=== PATIENT | female | born 1930 | race Caucasian/White ===

== ENCOUNTER 2016-08-03 18:02 | Inpatient (IN) ==
--- NOTE | 2016-08-03 19:41 | Internal Med History&Physical ---
<Xavi Ricketts - Last Filed: 08/03/16 22:12> Date of Encounter: 08/03/16 Time of Encounter: 19:41 Assessment and Plan (1) Sepsis due to urinary tract infection Current visit: Yes Status: Acute -in 2006, spesis (unknown source), patient was intubated. -Diagnosed by UA. Sent for culture. Awaiting results -Pt given 2gm rocephin at [place], 1.5L fluid bolus -1 BC at [facility] -Patient stable and not in any distress Plan -Continue fluids at 25mls/hr -Rocephin 1gm q12 h -Get another Blood culture, lactate -Redraw labs in morning (2) Anxiety Current visit: No Status: Acute -Chronic -Ativan 0.5 TID. (3) Chronic obstructive pulmonary disease, unspecified Current visit: No Status: Acute -Previous smoker -No cough, sputum production, SOB -home O2 at 2.5L NC PLan -Continue home o2 -Continue home medication (symbicort? Awaiting clarification) Qualifiers: COPD type: COPD with acute exacerbation Qualified Code(s): J44.1 - Chronic obstructive pulmonary disease with (acute) exacerbation (4) DVT prophylaxis Current visit: No Status: Acute -Previous history of DVT. -lovenox sq (5) Pelvic fracture Current visit: Yes Status: Acute -R sided. 2 Weeks ago. -Conservative management. Patient able to pivot to bedside commode. Plan -Renal function WNL -Percocet 5mg q6h for pain. Taken previously. Qualifiers: Encounter type: sequela Pelvic bone location: unspecified part of pelvis Fracture type: closed Fracture alignment: nondisplaced Qualified Code(s): S32.9XXS - Fracture of unspecified parts of lumbosacral spine and pelvis, sequela Internal Medicine - H&P: HPI Chief complaint: Nausea and hip pain Admitted From: Emergency Dept Plans for Post Hospital Care: Home History of present illness: Ms. Mcdaniels is a 86 year old female admitted for possible urosepsis with concurrent R pelvic fracture 2 weeks ago. 2 weeks ago on Wednesday patient had an unprovoked fall, slipped on some water, landed on her right side. X-ray revealed a right pelvic fracture. Knee X-ray showed no abnormalities. No surgery. Conservative medical management. 8 days later, patient had subjective fever. This morning, patient had temperature of 99.5 and was feeling nauseated, non productive cough and hurting, mostly over R pelvic bone. Family brought her to ER and found to have a WBC of 22 and UTI. CXR showed emphysema. No pneumonia/ effusion. She was given Rocephin (patient denied allergy to Rocephin) and sent to [facility]. She is currently resting comfortably in bed with her daughter at bedside. Admits to R pelvic pain and superpubic tenderness, dysuria. Denies hematuria or dark urine. No longer feeling nauseated. Denies Vomiting, confusion , [place]KE, blurry vision, CP, SOB, Flankpain. She was admitted in 2006 for sepsis ( cant remember the source) and placed on a ventilator. Past Med Surg Social Fam HX - Past Medical History Medical history: COPD, GERD, hyperlipidemia, hypertension, osteoporosis, thyroid disease, other Psychiatric history: anxiety - Past Surgical History Surgical History: appendectomy, cholecystectomy, orthopedic, other, other - Social History Smoking Status: Former smoker Smokeless Tobacco Status: No Alcohol use: none Drug use: none - Family History Father Living Status: Hx Family Cancer: Yes (prostate) Mother Living Status: Hx Family Cardiac Disorders: Yes (CHF) Hx Family Cancer: Yes (colon cancer) Sister Living Status: Hx Family Cancer: Yes (breast) Internal Medicine - H&P: Meds Aspirin 81 mg PO DAILY 07/24/16 [History] Dextrose/Vitamin D3 [Trueplus Glucose 4 gm Tab Chew] 1 each PO DAILY 07/24/16 [ History] Famotidine [Heartburn Prevention] 20 mg PO DAILY 07/24/16 [History] Levothyroxine [Synthroid] 50 mcg PO 0630 07/24/16 [History] Lisinopril [Zestril] 5 mg PO DAILY 07/24/16 [History] Loratadine [Claritin] 10 mg PO DAILY 07/24/16 [History] Simvastatin [Zocor] 40 mg PO HS 07/24/16 [History] HYDROcodone/Acet 5/325 mg [Hernandez 5-325 mg] 1 tab PO Q6H PRN #12 tab 07/27/16 [Rx ] Ondansetron ODT [Zofran ODT] 4 mg SL Q6HR #12 tab.rapdis 07/27/16 [Rx] Allergies Penicillins Allergy (Verified 07/27/16 12:21) Hives Sulfa (Sulfonamide Antibiotics) Allergy (Verified 07/27/16 12:21) Hives All Systems PM: A 10-system review of systems was performed and is negative for pertinent findings except as documented above in the HPI. - EENT Eyes: no change in vision, no discharge, no pain, no photophobia - Cardiovascular Cardiovascular ROS IM: no chest pain, no diaphoresis, no dyspnea, no lightheadedness, no palpitations, no syncope - Respiratory Respiratory: no cough, no dyspnea, no wheezing, no excessive phlegm production - Constitutional General appearance: Present: A&O X 3, no acute distress, answers questions appropriately - Head Head exam: Present: atraumatic, normal inspection - Respiratory Respiratory exam: Present: decreased breath sounds - Cardiovascular Cardiovascular exam: Present: RRR - GI/Abdominal GI/Abdominal exam: Present: normal bowel sounds, soft, tenderness (superpubic ) , no peritoneal signs - Expanded Lower Extremities Exam Hip exam: Absent: swelling - Neurological Exam Neurological exam: Present: CN II-XII intact, oriented X3, no focal deficits. Absent: pronater drift, facial droop, speech deficit - Other Additional findings: No tender with palpation over the right greater trochanter. Moderate tenderness to palpation. Symphysis. Right side medial thigh ecchymosis. No tenderness over the right knee. Mild to moderate pitting edema bilaterally. Feet are normal color and pulse bilaterally. <Paul Temple - Last Filed: 08/04/16 03:39> Date of Encounter: 08/03/16 Internal Medicine - H&P: HPI Admitted From: Emergency Dept Plans for Post Hospital Care: Home History of present illness: Ms. Mcdaniels is a 86 year old female with history significant diffuse OA, osteoporosis/vit D def, chr dorsalgia/h/o vertebral comp fxs, HTN, HLD, anemia chronic disease,RLS, h/oVTE/DVT, multiple falls,CAD/AMIs, gen anxiety, hypothyroidism, COPD/chr hypoxic resp failure, GERD, FTT/anorexia, former smoker,etc.. Admitted to [facility] as a transfer from [facility] where she presented that the request of her primary care physician for persisting posttraumatic pelvic pain affecting patient's ability to remain independent in completing daily activities in the home setting. Radiographs performed on July 27 demonstrated that the patient had suffered a nonsurgical, acute minimally displaced, fracture of the right superior and inferior pubic rami. Also delineated was evidence of diffuse demineralization and degenerative changes of the lumbar spine. Compression deformities were noted at L1, L3 and T11. These were felt to be chronic, age- indeterminate compression fractures. However since her injury the patient has not shown measurable improvement in her mobility and independence in her activities of daily living. She reports diffuse musculoskeletal pain including right lateral chest wall pelvis and bilateral hips right leg lower back and suprapubic area of abdomen etc. Her daughter presentation did note that the patient had a low-grade fever of 99.8 with a non- productive cough. Patient reports compliance with her home medications including breathing treatments but this cannot be elevated at this time. Findings of the EGD noted a temperature of 99.8 pulse 105-115 respirations 18. 90-96/52-58, saturation 95-96% room air. CBC 23.4 hemoglobin 10.6. MCV 103 MCH 33.7. Platelets 208,000. Differential showed an increase in neutrophils and monocytes. Comprehensive metabolic panel was normal except a glucose of 156 osmolality 302. BUN was 26 with creatinine 0.87. Albumin 3.1 with total of 6. Lipase was 11. PT 14.3 INR 1.3 PTT 30.7. Lactic acid 1. Phosphorus 2.5 magnesium 2.1. Urinalysis showed large protein and specific gravity was greater than 1.03. Large ketones. Moderate bilirubin. Urobilinogen was 2.0. Trace leukocyte esterase. EKG noticed sinus tachycardia. Rate 104. Left axis deviation. No acute ischemic changes. Preliminary impression suggest serious/sepsis criteria present at admission. Source suggested to be UTI. Further investigation is warranted given patient's significant history of COPD and recent traumatic injuries and limitations. Therapies will be initiated empirically to address sepsis secondary to urinary source. But appropriate pulmonary toilet measures and pain management will also be introduced and progress as appropriate. The patient given her presenting concerns her advanced age and frailty clinical findings and comorbidities inside that she is at risk for further acute clinical decline and morbidity in this setting. Workup and treatments will progress comprehensively. The patient was visited and interviewed and examined. I examined this patient and my medical decision-making was reviewed with the Resident Physician, Dr. Xavi Ricketts. For this encounter, I have reviewed the documentation, treatment plan, and medical decision making. Cumulative laboratory and radiographic database has been reviewed, considered and discussed. I agree with the documented findings, disposition and treatment plan as described except to the extent set forth below. Plan of care has been discussed in detail with patient. Questions addressed. Consultative opinions will be sought as clinical circumstances justify. Given the patient's presenting concerns, past medical history, clinical findings and symptoms, she is admitted at this time to undergo further evaluation and disposition. Orders were written as per the computerized physician order management specialist system. Condition is serious. Prognosis is guarded. CODE STATUS is reported as full Past Med Surg Social Fam HX - Past Medical History Source: old records reviewed Medical history: arthritis, COPD, coronary artery disease, DVT, GERD, hyperlipidemia, hypertension, myocardial infarction, osteoporosis (Vit D def.), thyroid disease, other (RLS. ) Psychiatric history: anxiety, other - Past Surgical History Surgical History: appendectomy, cholecystectomy, orthopedic, other, other - Social History Smoking Status: Former smoker Alcohol use: none Drug use: none Occupational status: retired Current living situation: Home, With Family Activity Level: Independent ambulation, Mostly sedentary Recent Out of Country Travel Within the Last 8 Weeks: No Exposure or Possible Exposure to Illness During Travel: No All Systems PM: A 10-system review of systems was performed and is negative for pertinent findings except as documented above in the HPI. - Constitutional Constitutional: as per HPI - EENT Eyes: as per HPI Ears: as per HPI Nose, mouth and throat: as per HPI - Breasts Breasts: as per HPI - Cardiovascular Cardiovascular ROS IM: as per HPI - Respiratory Respiratory: as per HPI - Gastrointestinal Gastrointestinal: as per HPI - Genitourinary Genitourinary: as per HPI Menstruation: as per HPI - Musculoskeletal Musculoskeletal ROS IM: as per HPI - Integumentary Integumentary IM: as per HPI - Neurological Neurological ROS: as per HPI - Psychiatric Psychiatric: as per HPI - Endocrine Endocrine IM: as per HPI - Hematologic/Lymphatic Hematologic/Lymphatic: as per HPI - Allergic/Immunologic Allergic/Immunologic: as per HPI - Constitutional Vitals: Temp Pulse Resp BP Pulse Ox 97.8 F 73 16 98/59 98 08/04/16 00:22 08/04/16 00:22 08/04/16 00:22 08/04/16 00:22 08/04/16 00:22 General appearance: Present: cachectic, cooperative, mild distress, A&O X 3, pleasant, underweight, answers questions appropriately - Attending Attestation My signature below is to certify that this patient is under my care and that I, or the Resident Physician working with me, has had a [id number] encounter with this patient.
[2016-08-03] MEDS ORDERED: 0.9 % Sodium Chloride 1,000 ML IVC SCH (22:00)
[2016-08-03] MEDS ORDERED: *HR* Enoxaparin 30 MG/0.3 ML SYRINGE SQ ONE (22:10)
[2016-08-03] MEDS ORDERED: *HR* OxyCODONE/APAP 5/325 TABLET PO PRN (22:11)
[2016-08-03] MEDS ORDERED: *HR* Morphine 2 MG/ML SYRINGE IVP PRN (23:53)
[2016-08-03] MEDS ORDERED: Ondansetron 4 MG/2 ML VIAL IVP PRN (23:53)
[2016-08-03] MEDS ORDERED: Naloxone 0.4 MG/ML INJ IVP PRN (23:53)
[2016-08-03] MEDS ORDERED: Acetaminophen 325 MG TABLET PO PRN (23:53)
[2016-08-03] MEDS ORDERED: Nicotine 21 MG PATCH.TD24 TD PRN (23:53)
[2016-08-03] MEDS ORDERED: Pantoprazole 40 MG VIAL IVP STA (23:53)
[2016-08-03] MEDS ORDERED: *HR* OxyCODONE Immed Rel 5 MG TABLET PO PRN (23:53)
[2016-08-04] MEDS: *HR* LORazepam 0.5 MG TABLET PO PRN ×3 (00:02→20:13)
[2016-08-04] MEDS ORDERED: 0.9 % Sodium Chloride 500 ML IVC ONE (03:41)
[2016-08-04] MEDS ORDERED: Benzonatate 100 MG CAPSULE PO PRN (03:47)
[2016-08-04 04:23] LABS: Basophils % 0.2 %; Eosinophils # 0.1 K/mcL (0.0-0.6); Eosinophils % 0.5 %; Hematocrit 27.3 % (35.3-44.9); Hemoglobin 8.9 g/dL (11.5-15.4); Immature Granulocytes % 0.5 % (0-4); Lymphocytes # 1.1 K/mcL (0.6-4.6); Lymphocytes % 9.4 %; Mean Corpuscular HGB Conc 32.6 g/dL (31.6-35.5); Mean Corpuscular Hemoglobin 34.2 pg (28.0-33.3); Mean Platelet Volume 11.5 fL (9.4-12.4); Monocytes # 2.2 K/mcL (0.0-1.3); Monocytes % 19.1 %; Neutrophils # 8.1 K/mcL (1.6-8.9); Platelet Count 166 K/mcL (140-400); Red Cell Distribution Width 13.2 % (11.5-14.5); Segmented Neutrophils % 70.3 %
[2016-08-04] MEDS: 0.9 % Sodium Chloride 1,000 ML IVC SCH ×2 (04:25→11:20)
[2016-08-04 04:27] LABS: INR 1.3; Prothrombin Time 14.2 Seconds (9.4-12.1)
[2016-08-04] MEDS: Ipratropium/Albuterol Neb 3 ML IH SCH ×4 (04:36→22:19)
[2016-08-04 04:37] LABS: % Iron Saturation 13 % (15-50); Chol/HDL Ratio 2.1 (0-4.9); Iron 23 mcg/dL (50-170); Transferrin 125 mg/dL (180-382)
[2016-08-04 04:38] LABS: Alanine Aminotransferase 19 Units/L (0-55); Albumin 2.5 g/dL (3.5-5.0); Alkaline Phosphatase 62 Units/L (38-126); Aspartate Amino Transferase 23 Units/L (5-34); BUN/Creatinine Ratio 31 (6-26); Bilirubin,Total 0.4 mg/dL (0.2-1.2); Blood Urea Nitrogen 22 mg/dL (7-20); Calcium 8.4 mg/dL (8.6-10.8); Carbon Dioxide 29 mEq/L (19-29); Chloride 106 mEq/L (98-109); Globulin 2.4 g/dL (2.4-3.5); Glucose 103 mg/dL (70-99); Osmolality,Calculated 294 (280-300); Potassium 3.8 mEq/L (3.5-4.5); Sodium 140 mEq/L (136-145); Total Protein 4.9 g/dL (6.0-8.3); eGFR For African Americans > 60 (> 60); eGFR For Non-African Americans > 60 (> 60)
[2016-08-04 05:06] LABS: Large Platelets Present (Not Present); Platelet Clumps Few (Not Present); Reactive Lymphocytes Present (Not Present)
[2016-08-04 05:12] LABS: Folate 14.5 ng/mL (7.0-31.4)
[2016-08-04] MEDS ORDERED: *HR* Enoxaparin 30 MG/0.3 ML SYRINGE SQ SCH (06:00)
[2016-08-04 06:08] LABS: Bilirubin,Urine Small (Negative); Blood,Urine Negative (Negative); Clarity,Urine Clear (Clear); Color,Urine Dark Yellow (Yellow); Glucose,Urine (UA) Normal (Normal); Ketones,Urine Negative (Negative); Leukocyte Esterase,Urine Negative (Negative); Nitrite,Urine Negative (Negative); PH,Urine 5.5 pH Units (5.0-8.0); Protein,Urine 30 mg/dL (Neg-Trace); Specific Gravity,Urine > 1.030 (1.010-1.025); Urobilinogen,Urine Normal (Normal)
[2016-08-04 06:09] LABS: Bacteria,Urine None Seen per hpf (None-Few); Hyaline Casts,Urine None Seen per lpf (None-Few); Squamous Epithelial Cell,Urine Many per lpf (None-Few); WBC,Urine 0-3 per hpf (0-3)
[2016-08-04] MEDS: Loratadine 10 MG TABLET PO SCH (08:38)
[2016-08-04] MEDS: Aspirin 81 MG TAB.CHEW PO SCH (08:38)
[2016-08-04] MEDS ORDERED: TRUEPLUS GLUCOSE PO SCH (09:00)
[2016-08-04] MEDS ORDERED: traMADol 50 MG TABLET PO SCH (09:00)
[2016-08-04] MEDS ORDERED: Famotidine 20 MG TABLET PO SCH ×2 (09:00)
[2016-08-04] MEDS ORDERED: *HR* HYDROcodone/Acet 5/325 mg TABLET PO PRN (14:03)
--- NOTE | 2016-08-04 18:13 | Internal Med Progress Note ---
Date of Encounter: 08/04/16 Time of Encounter: 14:00 - Assessment and plan (1) Sepsis due to urinary tract infection Current Visit: Yes Status: Acute Assessment and plan: Patient presented with altered mental status, leukocytosis and noted to have a source of infection. Continue IV antibiotics and follow up urine culture. (2) Acute encephalopathy Current Visit: Yes Status: Resolved Assessment and plan: Likely related to underlying infection. Currently at baseline mental status. (3) Chronic obstructive pulmonary disease, unspecified Current Visit: Yes Status: Chronic Assessment and plan: Not noted to be in acute exacerbation. Continue when necessary bronchodilators and supplemental oxygen. Qualifiers: COPD type: unspecified COPD Qualified Code(s): J44.9 - Chronic obstructive pulmonary disease, unspecified (4) Anxiety Current Visit: Yes Status: Chronic (5) Physical deconditioning Current Visit: Yes Status: Chronic Assessment and plan: Physical and occupational therapy evaluation. Fall precautions. (6) Urinary tract infection Current Visit: Yes Status: Acute Assessment and plan: Urinalysis is suggestive of UTI. Continue IV antibiotics and follow up urine cultures. Qualifiers: Urinary tract infection type: site unspecified Hematuria presence: without hematuria Qualified Code(s): N39.0 - Urinary tract infection, site not specified - Subjective Interval history: Reports generalized weakness. No nausea, vomiting, abdominal pain. Reports living alone and having no help at home, interested in rehabilitation placement. - Constitutional Vitals: Temp Pulse Resp BP Pulse Ox 97.9 F 92 18 123/67 95 08/04/16 16:42 08/04/16 16:42 08/04/16 16:42 08/04/16 16:42 08/04/16 16:42 General appearance: Present: cachectic, A&O X 3, answers questions appropriately - Respiratory Respiratory exam: Present: CTAB. Absent: accessory muscle use, rales, rhonchi, wheezes - Cardiovascular Cardiovascular exam: Present: RRR, +S1, +S2. Absent: diastolic murmur, gallop, rubs, systolic murmur - GI/Abdominal GI/Abdominal exam: Present: normal bowel sounds, soft, no peritoneal signs. Absent: distended, tenderness Internal Medicine: Result - Labs CBC & Chem 7: 08/04/16 04:11 08/04/16 04:11 Labs: Short CBC 08/04/16 Range/Units 04:11 WBC 11.5 H D (4.3-11.1) K/mcL Hgb 8.9 L D (11.5-15.4) g/dL Hct 27.3 L (35.3-44.9) % Plt Count 166 (140-400) K/mcL Neutrophils # 8.1 (1.6-8.9) K/mcL BMP 08/04/16 04:11 Sodium 140 Potassium 3.8 Chloride 106 Carbon Dioxide 29 BUN 22 H Creatinine 0.72 Glucose 103 H Calcium 8.4 L Cardiac Enzymes 08/04/16 Range/Units 04:11 Troponin I 0.01 (0-0.03) ng/mL Liver Function 08/04/16 Range/Units 04:11 Total Bilirubin 0.4 (0.2-1.2) mg/dL AST 23 (5-34) Units/L ALT 19 (0-55) Units/L Alkaline Phosphatase 62 (38-126) Units/L Albumin 2.5 L (3.5-5.0) g/dL Urine 08/04/16 Range/Units 05:43 Urine Color Dark Yellow (Yellow) Urine Clarity Clear (Clear) Urine pH 5.5 (5.0-8.0) pH Units Ur Specific [place] > 1.030 H (1.010-1.025) Urine Protein 30 H (Neg-Trace) mg/dL Urine Glucose (UA) Normal (Normal) mg/dL - ABG Interpretation ABG results: PT/INR, D-dimer PT 14.2 Seconds (9.4-12.1) H 08/04/16 04:11 - VTE Documentation of Mechanical Device: Graduated compression elastic hosiery Consult Discharge Plan - Plan Referrals: Nuzhat Wood MD [Primary Care Provider] -
[2016-08-05] MEDS: *HR* HYDROcodone/Acet 10/325 mg TABLET PO PRN ×2 (00:47→13:27)
[2016-08-05] MEDS: 0.9 % Sodium Chloride 1,000 ML IVC SCH (01:47)
[2016-08-05] MEDS: Ipratropium/Albuterol Neb 3 ML IH SCH ×6 (04:35→23:25)
[2016-08-05] MEDS: *HR* Enoxaparin 40 MG/0.4 ML SYRINGE SQ SCH (05:34)
[2016-08-05 06:33] LABS: Basophils # 0.1 K/mcL (0.0-0.2); Basophils % 0.7 %; Eosinophils # 0.2 K/mcL (0.0-0.6); Eosinophils % 2.3 %; Hematocrit 30.3 % (35.3-44.9); Hemoglobin 9.8 g/dL (11.5-15.4); Immature Granulocytes % 0.4 % (0-4); Lymphocytes # 1.2 K/mcL (0.6-4.6); Lymphocytes % 17.2 %; Mean Corpuscular HGB Conc 32.3 g/dL (31.6-35.5); Mean Corpuscular Hemoglobin 33.6 pg (28.0-33.3); Mean Corpuscular Volume 103.8 fL (83.0-100.0); Mean Platelet Volume 11.4 fL (9.4-12.4); Monocytes # 0.9 K/mcL (0.0-1.3); Monocytes % 12.9 %; Neutrophils # 4.7 K/mcL (1.6-8.9); Platelet Count 197 K/mcL (140-400); Red Blood Count 2.92 M/mcL (3.82-4.97); Red Cell Distribution Width 12.8 % (11.5-14.5); Segmented Neutrophils % 66.5 %
[2016-08-05 06:48] LABS: BUN/Creatinine Ratio 26 (6-26); Blood Urea Nitrogen 17 mg/dL (7-20); Calcium 9.1 mg/dL (8.6-10.8); Carbon Dioxide 28 mEq/L (19-29); Chloride 105 mEq/L (98-109); Glucose 120 mg/dL (70-99); Osmolality,Calculated 289 (280-300); Potassium 3.6 mEq/L (3.5-4.5); Sodium 138 mEq/L (136-145); eGFR For African Americans > 60 (> 60); eGFR For Non-African Americans > 60 (> 60)
[2016-08-05 07:16] LABS: Platelet Estimate Normal (Normal)
[2016-08-05] MEDS: Loratadine 10 MG TABLET PO SCH (08:21)
[2016-08-05] MEDS: Aspirin 81 MG TAB.CHEW PO SCH (08:21)
[2016-08-05] MEDS: Famotidine 20 MG TABLET PO SCH (08:21)
[2016-08-05] MEDS: Budesonide/Formoterol 160/4.5 MDI IH SCH ×2 (10:04→20:10)
--- NOTE | 2016-08-05 17:26 | Internal Med Progress Note ---
Date of Encounter: 08/05/16 Time of Encounter: 12:45 - Assessment and plan (1) Sepsis due to urinary tract infection Current Visit: Yes Status: Suspected Assessment and plan: Patient presented with altered mental status, leukocytosis and noted to have a source of infection. Currently improved, however urine culture shows no significant growth. Continue IV antibiotics to complete a short course. (2) Acute encephalopathy Current Visit: Yes Status: Resolved (3) Chronic obstructive pulmonary disease, unspecified Current Visit: Yes Status: Chronic Assessment and plan: Not noted to be in acute exacerbation. Continue when necessary bronchodilators and supplemental oxygen. Qualifiers: COPD type: unspecified COPD Qualified Code(s): J44.9 - Chronic obstructive pulmonary disease, unspecified (4) Anxiety Current Visit: Yes Status: Chronic (5) Physical deconditioning Current Visit: Yes Status: Chronic Assessment and plan: Physical and occupational therapy evaluation noted, recommend inpatient rehabilitation. vice president client services on board, anticipate discharge in a.m. Fall precautions. (6) Urinary tract infection Current Visit: Yes Status: Ruled-out Qualifiers: Urinary tract infection type: site unspecified Hematuria presence: without hematuria Qualified Code(s): N39.0 - Urinary tract infection, site not specified - Subjective Interval history: Reports pelvic pain and having a bad night due to noise from neighboring patient 's room. Tolerates oral diet. Requests rehabilitation placement. - Constitutional Vitals: Temp Pulse Resp BP Pulse Ox 98 F 90 19 164/89 96 08/05/16 13:58 08/05/16 13:58 08/05/16 13:58 08/05/16 13:58 08/05/16 13:58 General appearance: Present: cachectic, mild distress, A&O X 3, answers questions appropriately - Respiratory Respiratory exam: Present: CTAB. Absent: accessory muscle use, rales, rhonchi, wheezes - Cardiovascular Cardiovascular exam: Present: RRR, +S1, +S2. Absent: diastolic murmur, gallop, rubs, systolic murmur - GI/Abdominal GI/Abdominal exam: Present: normal bowel sounds, soft, no peritoneal signs. Absent: distended, tenderness Internal Medicine: Result - Labs CBC & Chem 7: 08/05/16 06:05 08/05/16 06:05 Labs: Short CBC 08/05/16 Range/Units 06:05 WBC 7.1 (4.3-11.1) K/mcL Hgb 9.8 L (11.5-15.4) g/dL Hct 30.3 L (35.3-44.9) % Plt Count 197 (140-400) K/mcL Neutrophils # 4.7 (1.6-8.9) K/mcL BMP 08/05/16 06:05 Sodium 138 Potassium 3.6 Chloride 105 Carbon Dioxide 28 BUN 17 Creatinine 0.66 Glucose 120 H Calcium 9.1 - ABG Interpretation ABG results: PT/INR, D-dimer PT 14.2 Seconds (9.4-12.1) H 08/04/16 04:11 - VTE Documentation of Mechanical Device: Graduated compression elastic hosiery Consult Discharge Plan - Plan Referrals: Nuzhat Wood MD [Primary Care Provider] -
[2016-08-05] MEDS: *HR* LORazepam 0.5 MG TABLET PO PRN ×2 (18:20→20:20)
[2016-08-06] MEDS: *HR* HYDROcodone/Acet 10/325 mg TABLET PO PRN (00:28)
[2016-08-06] MEDS: 0.9 % Sodium Chloride 1,000 ML IVC SCH (00:29)
[2016-08-06] MEDS: Ipratropium/Albuterol Neb 3 ML IH SCH ×6 (04:02→23:58)
[2016-08-06] MEDS: *HR* Enoxaparin 40 MG/0.4 ML SYRINGE SQ SCH (05:44)
[2016-08-06] MEDS: Budesonide/Formoterol 160/4.5 MDI IH SCH ×2 (08:41→19:39)
[2016-08-06] MEDS: Famotidine 20 MG TABLET PO SCH (09:12)
[2016-08-06] MEDS: Loratadine 10 MG TABLET PO SCH (09:12)
[2016-08-06] MEDS: Aspirin 81 MG TAB.CHEW PO SCH (09:12)
[2016-08-06] MEDS: *HR* LORazepam 0.5 MG TABLET PO PRN ×2 (09:22→20:22)
--- NOTE | 2016-08-06 17:47 | Internal Med Progress Note ---
Date of Encounter: 08/06/16 Time of Encounter: 12:30 - Assessment and plan (1) Sepsis due to urinary tract infection Current Visit: Yes Status: Suspected Assessment and plan: Patient presented with altered mental status, leukocytosis and noted to have a source of infection. Currently improved, however urine culture shows no significant growth. Continue IV antibiotics to complete a short course. (2) Acute encephalopathy Current Visit: Yes Status: Resolved Assessment and plan: Patient is noted to be delirious and hallucinating, according to nursing notes. Patient likely has sundowning and age related changes in cognitive function. Spoke at length with patient's daughter, who expressed concern about the patient 's mental status and reports that patient has been completely alert and oriented until this admission. Explained to the daughter that sundowning/ delirium is very common in hospitalized elderly patients, patient is not on any kind of sedatives except when necessary Ativan, which she has not been receiving and which is her home medication. Daughter verbalized understanding and is agreeable to discharge to [facility]. We will check TSH, serum vitamin B12 and folic acid. (3) Chronic obstructive pulmonary disease, unspecified Current Visit: Yes Status: Chronic Qualifiers: COPD type: unspecified COPD Qualified Code(s): J44.9 - Chronic obstructive pulmonary disease, unspecified (4) Anxiety Current Visit: Yes Status: Chronic (5) Physical deconditioning Current Visit: Yes Status: Chronic (6) Urinary tract infection Current Visit: Yes Status: Ruled-out Qualifiers: Urinary tract infection type: site unspecified Hematuria presence: without hematuria Qualified Code(s): N39.0 - Urinary tract infection, site not specified - Subjective Interval history: Noted to be sitting up in chair, having lunch. Reports no abdominal pain or any other complaints. Awaiting rehabilitation placement. - Constitutional Vitals: Temp Pulse Resp BP Pulse Ox 98.7 F 90 16 159/70 97 08/06/16 14:23 08/06/16 14:23 08/06/16 16:15 08/06/16 14:23 08/06/16 16:15 General appearance: Present: cachectic, A&O X 3, answers questions appropriately - Respiratory Respiratory exam: Present: CTAB. Absent: accessory muscle use, rales, rhonchi, wheezes - Cardiovascular Cardiovascular exam: Present: irregular rhythm, +S1, +S2. Absent: diastolic murmur, gallop, rubs, systolic murmur - GI/Abdominal GI/Abdominal exam: Present: normal bowel sounds, soft, no peritoneal signs. Absent: distended, tenderness Internal Medicine: Result - Labs CBC & Chem 7: 08/05/16 06:05 08/05/16 06:05 - ABG Interpretation ABG results: PT/INR, D-dimer PT 14.2 Seconds (9.4-12.1) H 08/04/16 04:11 - VTE Documentation of Mechanical Device: Graduated compression elastic hosiery Consult Discharge Plan - Plan Referrals: Nuzhat Wood MD [Primary Care Provider] -
--- NOTE | 2016-08-06 23:15 | Electrocardiograph Report ---
[facility] Test Date: 2016-08-06 Pat Name: Jess Mcdaniels Department: 115 Room: 3A23 Gender: F Inspector Of Dredging: PAYAL : 1930 Requested By: Sandra Reed Order Number: [id number] Reading MD: Uriel Thomas MD Measurements Intervals [place] Rate: 97 P: 62 IA: 116 QRS: -19 QRSD: 86 T: 57 QT: 351 QTc: 405 Interpretive Statements SINUS RHYTHM WITH SHORT IA INTERVAL WITH OCCASIONAL SUPRAVENTRICULAR PREMATURE COMPLEXES Electronically Signed On 08-06-2016 23:13:23 EDT by Uriel Thomas MD
[2016-08-07] MEDS: *HR* LORazepam 0.5 MG TABLET PO PRN (01:01)
[2016-08-07] MEDS: Ipratropium/Albuterol Neb 3 ML IH SCH ×5 (01:08→19:54)
[2016-08-07] MEDS: Albuterol 2.5 MG/3 ML NEBULIZER IH PRN (03:42)
[2016-08-07] MEDS: *HR* HYDROcodone/Acet 10/325 mg TABLET PO PRN (04:43)
[2016-08-07] MEDS: *HR* Enoxaparin 40 MG/0.4 ML SYRINGE SQ SCH (05:38)
[2016-08-07] MEDS: Aspirin 81 MG TAB.CHEW PO SCH (08:17)
[2016-08-07] MEDS: Famotidine 20 MG TABLET PO SCH (08:17)
[2016-08-07] MEDS: Loratadine 10 MG TABLET PO SCH (08:18)
[2016-08-07] MEDS: Budesonide/Formoterol 160/4.5 MDI IH SCH ×2 (10:43→19:54)
[2016-08-07 11:21] LABS: BUN/Creatinine Ratio 21 (6-26); Blood Urea Nitrogen 14 mg/dL (7-20); Calcium 9.7 mg/dL (8.6-10.8); Carbon Dioxide 29 mEq/L (19-29); Chloride 104 mEq/L (98-109); Glucose 111 mg/dL (70-99); Magnesium 1.8 mg/dL (1.6-2.6); Osmolality,Calculated 293 (280-300); Phosphorous 3.4 mg/dL (2.3-4.7); Potassium 3.6 mEq/L (3.5-4.5); Sodium 141 mEq/L (136-145); eGFR For African Americans > 60 (> 60); eGFR For Non-African Americans > 60 (> 60)
[2016-08-07 11:27] LABS: Basophils % 0.3 %; Eosinophils # 0.1 K/mcL (0.0-0.6); Eosinophils % 1.2 %; Hematocrit 31.6 % (35.3-44.9); Hemoglobin 10.5 g/dL (11.5-15.4); Immature Granulocytes % 0.6 % (0-4); Lymphocytes # 0.5 K/mcL (0.6-4.6); Lymphocytes % 3.8 %; Mean Corpuscular HGB Conc 33.2 g/dL (31.6-35.5); Mean Corpuscular Hemoglobin 33.5 pg (28.0-33.3); Mean Platelet Volume 11.4 fL (9.4-12.4); Monocytes # 2.4 K/mcL (0.0-1.3); Monocytes % 19.7 %; Neutrophils # 8.9 K/mcL (1.6-8.9); Red Blood Count 3.13 M/mcL (3.82-4.97); Red Cell Distribution Width 12.8 % (11.5-14.5); Segmented Neutrophils % 74.4 %
[2016-08-07 11:28] LABS: Platelet Count 300 K/mcL (140-400)
[2016-08-07] MEDS ORDERED: Ibuprofen 400 MG TABLET PO PRN (12:25)
[2016-08-07] MEDS ORDERED: traMADol 50 MG TABLET PO PRN (12:25)
--- NOTE | 2016-08-07 12:28 | Internal Med Progress Note ---
Date of Encounter: 08/07/16 Time of Encounter: 12:26 - Assessment and plan (1) Tachycardia Current Visit: Yes Status: Acute Assessment and plan: Patient is noted to have sinus tachycardia today with normal to high blood pressure. We will start telemetry monitoring. EKG shows sinus tachycardia with PVCs. We will start oral metoprolol and IV hydration and monitor urine output closely. (2) Sepsis due to urinary tract infection Current Visit: Yes Status: Suspected Assessment and plan: Patient has been on IV Rocephin since admission. Blood and urine cultures remain negative and no other source of infection identified. (3) Acute encephalopathy Current Visit: Yes Status: Acute Assessment and plan: Patient likely has delirium due to elderly age, prolonged hospitalization and sundowning. She is noted to have visual hallucinations although she seems oriented in general. No metabolic abnormality noted. No source of infection at this time although there is mild leukocytosis. Has been on IV antibiotics since admission. Requiring an occasional dose of oral Ativan and hydrocodone. We will hold narcotic pain medications at this time and continue to monitor closely. Will repeat labs, [facility] catheterization and monitor urine output. Start IV hydration. Supportive care and fall precautions. (4) Chronic obstructive pulmonary disease, unspecified Current Visit: Yes Status: Chronic Assessment and plan: Not noted to be in acute exacerbation. Continue when necessary bronchodilators and supplemental oxygen. Qualifiers: COPD type: unspecified COPD Qualified Code(s): J44.9 - Chronic obstructive pulmonary disease, unspecified (5) Anxiety Current Visit: Yes Status: Chronic (6) Physical deconditioning Current Visit: Yes Status: Chronic Assessment and plan: Physical and occupational therapy evaluation noted, recommend inpatient rehabilitation. ancillary services manager therapy on board, discharge had to be held today due to tachycardia and hallucinations. Fall precautions. (7) Urinary tract infection Current Visit: Yes Status: Ruled-out Qualifiers: Urinary tract infection type: site unspecified Hematuria presence: without hematuria Qualified Code(s): N39.0 - Urinary tract infection, site not specified - Subjective Interval history: Very confused and disoriented today; reports that her friend's wedding is going on and thinks her Telemetry box is her phone with [employer]; denies any pain, dyspnea; - Constitutional Vitals: Temp Pulse Resp BP Pulse Ox 97.7 F 114 16 145/69 97 08/07/16 11:00 08/07/16 11:00 08/07/16 11:00 08/07/16 11:00 08/07/16 11:00 General appearance: Present: cachectic, A&O X 1 - Respiratory Respiratory exam: Present: CTAB. Absent: accessory muscle use, rales, rhonchi, wheezes - Cardiovascular Cardiovascular exam: Present: RRR, +S1, +S2, tachycardia. Absent: diastolic murmur, gallop, rubs, systolic murmur - GI/Abdominal GI/Abdominal exam: Present: distended (tympanic note), normal bowel sounds, soft , no peritoneal signs. Absent: tenderness - Extremities Exam Extremities exam: Present: full ROM, warm, radial pulses palpable and symetrical. Absent: calf tenderness, cyanotic, pedal edema - Neurological Exam Neurological exam: Present: altered, CN II-XII intact, no focal deficits. Absent: pronater drift, facial droop, speech deficit Internal Medicine: Result - Labs CBC & Chem 7: 08/07/16 10:58 08/07/16 10:58 Labs: Short CBC 08/07/16 Range/Units 10:58 WBC 12.0 H D (4.3-11.1) K/mcL Hgb 10.5 L (11.5-15.4) g/dL Hct 31.6 L (35.3-44.9) % Plt Count 300 D (140-400) K/mcL Neutrophils # 8.9 (1.6-8.9) K/mcL BMP 08/07/16 10:58 Sodium 141 Potassium 3.6 Chloride 104 Carbon Dioxide 29 BUN 14 Creatinine 0.67 Glucose 111 H Calcium 9.7 - ABG Interpretation ABG results: PT/INR, D-dimer PT 14.2 Seconds (9.4-12.1) H 08/04/16 04:11 - VTE Documentation of Mechanical Device: Intermittent pneumatic compression device Consult Discharge Plan - Plan Referrals: Nuzhat Wood MD [Primary Care Provider] -
--- NOTE | 2016-08-07 12:39 | Electrocardiograph Report ---
[address] [place], [place] [address] Test Date: 2016-08-06 Pat Name: Jess Mcdaniels Department: 115 Room: 3A23 Gender: F Dam Tender Assistant: PAYAL : 1930 Requested By: Paul Temple Order Number: [id number] Reading MD: Tammie Vu Measurements Intervals [place] Rate: 104 P: 64 [place]: 132 QRS: -24 QRSD: 87 T: 58 QT: 366 QTc: 426 Interpretive Statements SINUS TACHYCARDIA WITH OCCASIONAL SUPRAVENTRICULAR PREMATURE COMPLEXES BORDERLINE LEFT AXIS DEVIATION ABNORMAL RHYTHM ECG Electronically Signed On 08-07-2016 12:38:05 EDT by Tammie Vu
[2016-08-07] MEDS: 0.9 % Sodium Chloride 1,000 ML IVC SCH (14:04)
[2016-08-08] MEDS: Ipratropium/Albuterol Neb 3 ML IH SCH ×7 (00:27→23:19)
[2016-08-08] MEDS: *HR* LORazepam 0.5 MG TABLET PO PRN (01:19)
[2016-08-08] MEDS: Albuterol 2.5 MG/3 ML NEBULIZER IH PRN (02:45)
[2016-08-08] MEDS: *HR* Enoxaparin 40 MG/0.4 ML SYRINGE SQ SCH (05:32)
[2016-08-08] MEDS: Budesonide/Formoterol 160/4.5 MDI IH SCH ×2 (07:41→19:35)
[2016-08-08] MEDS: Aspirin 81 MG TAB.CHEW PO SCH (09:10)
[2016-08-08] MEDS: Loratadine 10 MG TABLET PO SCH (09:10)
[2016-08-08] MEDS: Famotidine 20 MG TABLET PO SCH (09:11)
[2016-08-08] MEDS: 0.9 % Sodium Chloride 1,000 ML IVC SCH ×2 (11:13→20:43)
[2016-08-08 13:32] LABS: Eosinophils % 1.4 %; Hematocrit 29.1 % (35.3-44.9); Hemoglobin 9.5 g/dL (11.5-15.4); Immature Granulocytes % 0.7 % (0-4); Lymphocytes % 5.4 %; Mean Corpuscular HGB Conc 32.6 g/dL (31.6-35.5); Mean Corpuscular Hemoglobin 33.9 pg (28.0-33.3); Mean Corpuscular Volume 103.9 fL (83.0-100.0); Mean Platelet Volume 11.6 fL (9.4-12.4); Platelet Count 271 K/mcL (140-400); Red Cell Distribution Width 12.8 % (11.5-14.5); Segmented Neutrophils % 75.2 %
[2016-08-08 13:33] LABS: Basophils % 0.3 %; Eosinophils # 0.2 K/mcL (0.0-0.6); Lymphocytes # 0.8 K/mcL (0.6-4.6); Monocytes # 2.4 K/mcL (0.0-1.3); Neutrophils # 10.5 K/mcL (1.6-8.9)
--- NOTE | 2016-08-08 15:06 | Internal Med Progress Note ---
Date of Encounter: 08/08/16 Time of Encounter: 13:00 - Assessment and plan (1) Tachycardia Current Visit: Yes Status: Resolved Assessment and plan: Improved with IV hydration. (2) Sepsis due to urinary tract infection Current Visit: Yes Status: Suspected Assessment and plan: Patient has been on IV Rocephin since admission. Noted to have slightly worsening leukocytosis at this time along with continued confusion and hallucinations. Will order sepsis workup with blood cultures, urine microscopy and culture and chest x-ray. Patient also is noted to have low urine output despite [facility] catheterization. We will give 500 mL normal saline bolus and off pain and bladder scan to check for obstruction. (3) Acute encephalopathy Current Visit: Yes Status: Acute Assessment and plan: Delirium, multifactorial-elderly age, sundowning, possible underlying infection and urinary retention. Continue to treat underlying conditions and supportive care. (4) Chronic obstructive pulmonary disease, unspecified Current Visit: Yes Status: Chronic Qualifiers: COPD type: unspecified COPD Qualified Code(s): J44.9 - Chronic obstructive pulmonary disease, unspecified (5) Anxiety Current Visit: Yes Status: Chronic (6) Physical deconditioning Current Visit: Yes Status: Chronic Assessment and plan: Plan to be discharged to senior care facility at [place]. (7) Urinary tract infection Current Visit: Yes Status: Ruled-out Qualifiers: Urinary tract infection type: site unspecified Hematuria presence: without hematuria Qualified Code(s): N39.0 - Urinary tract infection, site not specified (8) Leukocytosis Current Visit: Yes Status: Acute Qualifiers: Leukocytosis type: unspecified Qualified Code(s): D72.829 - Elevated white blood cell count, unspecified - Subjective Interval history: Able to ell me her name and where she is at; talks about things from the past; poor insight into her current medical condition, cannot provide history; - Constitutional Vitals: Temp Pulse Resp BP Pulse Ox 98.5 F 95 16 143/83 94 08/08/16 10:48 08/08/16 10:48 08/08/16 11:19 08/08/16 10:48 08/08/16 11:19 General appearance: Present: cachectic, A&O X 2 - Respiratory Respiratory exam: Present: CTAB. Absent: accessory muscle use, rales, rhonchi, wheezes - Cardiovascular Cardiovascular exam: Present: RRR, +S1, +S2. Absent: diastolic murmur, gallop, rubs, systolic murmur - GI/Abdominal GI/Abdominal exam: Present: normal bowel sounds, soft, no peritoneal signs. Absent: distended, tenderness - Extremities Exam Extremities exam: Present: full ROM, warm, radial pulses palpable and symetrical. Absent: calf tenderness, cyanotic, pedal edema Internal Medicine: Result - Labs CBC & Chem 7: 08/08/16 12:54 08/07/16 10:58 Labs: Short CBC 08/08/16 Range/Units 12:54 WBC 13.9 H (4.3-11.1) K/mcL Hgb 9.5 L (11.5-15.4) g/dL Hct 29.1 L (35.3-44.9) % Plt Count 271 (140-400) K/mcL Neutrophils # 10.5 H (1.6-8.9) K/mcL - ABG Interpretation ABG results: PT/INR, D-dimer PT 14.2 Seconds (9.4-12.1) H 08/04/16 04:11 - VTE Documentation of Mechanical Device: Intermittent pneumatic compression device Consult Discharge Plan - Plan Referrals: Nuzhat Wood MD [Primary Care Provider] -
[2016-08-08 17:28] LABS: Bilirubin,Urine Small (Negative); Blood,Urine Moderate (Negative); Clarity,Urine Clear (Clear); Color,Urine Yellow (Yellow); Glucose,Urine (UA) Normal (Normal); Ketones,Urine 15 mg/dL (Negative); Leukocyte Esterase,Urine Negative (Negative); Nitrite,Urine Negative (Negative); PH,Urine 5.5 pH Units (5.0-8.0); Protein,Urine 30 mg/dL (Neg-Trace); Specific Gravity,Urine >= 1.030 (1.010-1.025); Urobilinogen,Urine Normal (Normal)
[2016-08-08 17:39] LABS: Squamous Epithelial Cell,Urine Few per lpf (None-Few)
[2016-08-08 17:40] LABS: Bacteria,Urine Few per hpf (None-Few); Mucus,Urine Few (Few); WBC,Urine 0-3 per hpf (0-3)
[2016-08-08] MEDS: Cefepime HCl 1,000 MG in D5% in Water (Mini-Bag+) 100 ML IVPB SCH (18:08)
[2016-08-09] MEDS: Ipratropium/Albuterol Neb 3 ML IH SCH ×6 (03:43→22:54)
[2016-08-09] MEDS: *HR* Enoxaparin 40 MG/0.4 ML SYRINGE SQ SCH (05:28)
[2016-08-09] MEDS: Cefepime HCl 1,000 MG in D5% in Water (Mini-Bag+) 100 ML IVPB SCH ×2 (05:28→17:41)
[2016-08-09] MEDS: *HR* LORazepam 0.5 MG TABLET PO PRN ×2 (05:35→15:54)
[2016-08-09 06:08] LABS: Basophils # 0.1 K/mcL (0.0-0.2); Basophils % 0.6 %; Eosinophils # 0.3 K/mcL (0.0-0.6); Eosinophils % 3.7 %; Hematocrit 30.8 % (35.3-44.9); Hemoglobin 9.7 g/dL (11.5-15.4); Immature Granulocytes % 0.6 % (0-4); Lymphocytes # 0.8 K/mcL (0.6-4.6); Lymphocytes % 10.5 %; Mean Corpuscular HGB Conc 31.5 g/dL (31.6-35.5); Mean Corpuscular Volume 104.8 fL (83.0-100.0); Mean Platelet Volume 11.3 fL (9.4-12.4); Monocytes # 1.1 K/mcL (0.0-1.3); Monocytes % 13.4 %; Neutrophils # 5.6 K/mcL (1.6-8.9); Platelet Count 267 K/mcL (140-400); Red Blood Count 2.94 M/mcL (3.82-4.97); Segmented Neutrophils % 71.2 %
[2016-08-09 06:17] LABS: BUN/Creatinine Ratio 18 (6-26); Blood Urea Nitrogen 11 mg/dL (7-20); Calcium 8.6 mg/dL (8.6-10.8); Carbon Dioxide 26 mEq/L (19-29); Chloride 107 mEq/L (98-109); Glucose 105 mg/dL (70-99); Osmolality,Calculated 290 (280-300); Potassium 3.4 mEq/L (3.5-4.5); Sodium 140 mEq/L (136-145); eGFR For African Americans > 60 (> 60); eGFR For Non-African Americans > 60 (> 60)
[2016-08-09] MEDS: Budesonide/Formoterol 160/4.5 MDI IH SCH ×2 (07:58→19:24)
[2016-08-09] MEDS: Famotidine 20 MG TABLET PO SCH (09:18)
[2016-08-09] MEDS: Aspirin 81 MG TAB.CHEW PO SCH (09:18)
[2016-08-09] MEDS: Loratadine 10 MG TABLET PO SCH (09:18)
[2016-08-09] MEDS ORDERED: Potassium Chloride Elixir 20 MEQ/15 ML UDC PO ONE (13:03)
[2016-08-09] MEDS: 0.9 % Sodium Chloride 1,000 ML IVC SCH (14:21)
[2016-08-09] MEDS ORDERED: Furosemide 20 MG/2 ML VIAL IVP ONE ×2 (16:38→16:40)
--- NOTE | 2016-08-09 16:56 | Internal Med Progress Note ---
Date of Encounter: 08/09/16 Time of Encounter: 15:30 - Assessment and plan (1) Respiratory distress Current Visit: Yes Status: Acute Assessment and plan: Likely secondary to volume overload as patient has been on IV hydration for more than 24 hours for oliguria. We will discontinue IV fluids at this time and obtain chest x-ray. Will give 1 dose of IV Lasix and monitor closely. Continue telemetry monitoring and continuous pulse oximetry. Oxygen saturation currently stable on low-flow nasal cannula oxygen. We will use when necessary BiPAP support. (2) Tachycardia Current Visit: Yes Status: Resolved (3) Sepsis due to urinary tract infection Current Visit: Yes Status: Ruled-out Assessment and plan: Complete sepsis workup repeated due to patient's fluctuating leukocytosis and confusion. Resolved leukocytosis, electrolytes normal, lactic acid within normal limits. Urine dipstick is not suggestive of infection. Blood cultures pending. Chest x-ray from 08/08/16 shows possible left basilar atelectasis versus pneumonia. Patient's antibiotic has been changed to IV cefepime. Continue to monitor. (4) Acute encephalopathy Current Visit: Yes Status: Acute Assessment and plan: Delirium, multifactorial-elderly age, sundowning, possible underlying infection and urinary retention. Continue to treat underlying conditions and supportive care. (5) Chronic obstructive pulmonary disease, unspecified Current Visit: Yes Status: Chronic Assessment and plan: Could be in mild acute exacerbation. Continue scheduled bronchodilators and supplemental oxygen. We will start oral steroids. Qualifiers: COPD type: unspecified COPD Qualified Code(s): J44.9 - Chronic obstructive pulmonary disease, unspecified (6) Anxiety Current Visit: Yes Status: Chronic Assessment and plan: Continue when necessary benzodiazepines. (7) Physical deconditioning Current Visit: Yes Status: Chronic (8) Leukocytosis Current Visit: Yes Status: Resolved Qualifiers: Leukocytosis type: unspecified Qualified Code(s): D72.829 - Elevated white blood cell count, unspecified - Subjective Interval history: Patient noted to be short of breath and in respiratory distress today. He reports no chest pain, nausea, vomiting. Difficulty breathing started this afternoon. - Constitutional Vitals: Temp Pulse Resp BP Pulse Ox 98.6 F 90 18 135/68 100 08/09/16 15:08 08/09/16 15:08 08/09/16 15:59 08/09/16 12:23 08/09/16 15:59 General appearance: Present: cachectic, A&O X 2, mild distress - Respiratory Respiratory exam: Present: wheezes (Coarse breath sounds bilaterally with diffuse wheezing). Absent: accessory muscle use, rales, rhonchi - Cardiovascular Cardiovascular exam: Present: RRR, +S1, +S2, tachycardia. Absent: diastolic murmur, gallop, rubs, systolic murmur - GI/Abdominal GI/Abdominal exam: Present: normal bowel sounds, soft, no peritoneal signs. Absent: distended, tenderness - Extremities Exam Extremities exam: Present: full ROM, warm, radial pulses palpable and symetrical. Absent: calf tenderness, cyanotic, pedal edema Internal Medicine: Result - Labs CBC & Chem 7: 08/09/16 05:54 08/09/16 05:54 Labs: Short CBC 08/09/16 Range/Units 05:54 WBC 7.9 (4.3-11.1) K/mcL Hgb 9.7 L (11.5-15.4) g/dL Hct 30.8 L (35.3-44.9) % Plt Count 267 (140-400) K/mcL Neutrophils # 5.6 (1.6-8.9) K/mcL BMP 08/09/16 05:54 Sodium 140 Potassium 3.4 L Chloride 107 Carbon Dioxide 26 BUN 11 Creatinine 0.61 Glucose 105 H Calcium 8.6 Urine 08/08/16 Range/Units 17:10 Urine Color Yellow (Yellow) Urine Clarity Clear (Clear) Urine pH 5.5 (5.0-8.0) pH Units Ur Specific [place] >= 1.030 H (1.010-1.025) Urine Protein 30 H (Neg-Trace) mg/dL Urine Glucose (UA) Normal (Normal) mg/dL - ABG Interpretation ABG results: PT/INR, D-dimer PT 14.2 Seconds (9.4-12.1) H 08/04/16 04:11 - VTE Documentation of Mechanical Device: Intermittent pneumatic compression device Consult Discharge Plan - Plan Referrals: Nuzhat Wood MD [Primary Care Provider] -
[2016-08-10] MEDS: Ipratropium/Albuterol Neb 3 ML IH SCH ×3 (03:43→11:27)
[2016-08-10] MEDS: *HR* LORazepam 0.5 MG TABLET PO PRN ×2 (04:57→14:50)
[2016-08-10] MEDS: Cefepime HCl 1,000 MG in D5% in Water (Mini-Bag+) 100 ML IVPB SCH (04:58)
[2016-08-10] MEDS: *HR* Enoxaparin 40 MG/0.4 ML SYRINGE SQ SCH (05:00)
[2016-08-10] MEDS: Budesonide/Formoterol 160/4.5 MDI IH SCH (07:39)
[2016-08-10] MEDS: Aspirin 81 MG TAB.CHEW PO SCH (07:44)
[2016-08-10] MEDS: Loratadine 10 MG TABLET PO SCH (07:44)
[2016-08-10] MEDS: Famotidine 20 MG TABLET PO SCH (07:45)
[2016-08-10 10:58] VITALS: BP 137/71
--- NOTE | 2016-08-10 12:02 | Discharge Summary ---
Date of Encounter: 08/10/16 Time of Encounter: 11:58 - Discharge Diagnosis (1) Respiratory distress Priority: Primary Status: Resolved (2) Tachycardia Priority: Primary Status: Resolved (3) Sepsis due to urinary tract infection Priority: Primary Status: Ruled-out (4) Acute encephalopathy Priority: Primary Status: Acute (5) Chronic obstructive pulmonary disease, unspecified Priority: Secondary Status: Chronic Qualifiers: COPD type: unspecified COPD Qualified Code(s): J44.9 - Chronic obstructive pulmonary disease, unspecified (6) Anxiety Priority: Secondary Status: Chronic (7) Physical deconditioning Priority: Secondary Status: Chronic (8) Leukocytosis Priority: Primary Status: Resolved Qualifiers: Leukocytosis type: unspecified Qualified Code(s): D72.829 - Elevated white blood cell count, unspecified - Discharge Medications Prescriptions: Metoprolol [Lopressor] 50 mg PO BID #30 tablet Home Medications: Aspirin 81 mg PO DAILY 07/24/16 [History] Dextrose/Vitamin D3 [Trueplus Glucose 4 gm Tab Chew] 1 tab PO DAILY 07/24/16 [ History] Famotidine [Heartburn Prevention] 20 mg PO DAILY 07/24/16 [History] Levothyroxine [Synthroid] 50 mcg PO 0630 07/24/16 [History] Lisinopril [Zestril] 5 mg PO DAILY 07/24/16 [History] Loratadine [Claritin] 10 mg PO DAILY 07/24/16 [History] Simvastatin [Zocor] 40 mg PO HS 07/24/16 [History] Ondansetron ODT [Zofran ODT] 4 mg SL Q6HR #12 tab.rapdis 07/27/16 [Rx] Acetaminophen [Tylenol Arthritis] 650 mg PO Q8H PRN 08/04/16 [History] Albuterol Sulfate [Proair Hfa] 2 puff IH Q4H PRN 08/04/16 [History] Budesonide/Formoterol 160/4.5 [Symbicort 160/4.5] 2 puff IH BIDR 08/04/16 [ History] Ergocalciferol (VITAMIN D2) [Vitamin D2] 50,000 unit PO QWEEK 08/04/16 [History] Ipratropium/Albuterol Neb [Duoneb] 3 ml IH Q6HR 08/04/16 [History] Oxygen 1 each .ROUTE AD 08/04/16 [History] Polyethylene Glycol 3350 [Smoothlax] 17 gm PO DAILY 08/04/16 [History] LORazepam [Ativan] 1 mg PO TID #30 08/10/16 [Rx] Metoprolol [Lopressor] 50 mg PO BID #30 tablet 08/10/16 [Rx] Allergies/Adverse Reactions: Allergies Penicillins Allergy (Verified 07/27/16 12:21) Hives Sulfa (Sulfonamide Antibiotics) Allergy (Verified 07/27/16 12:21) Hives Procedures/tests Complete & Pending: Procedures Performed prior 72 hours Category Date Time Status US retroperitoneal comp [US] Stat Exams 08/10/16 13:00 Stop Req Date of admission: 08/05/16 17:22 Primary care physician: Nuzhat Wood, Consults: 08/03/16 20:26 Consult to Pastoral Services [CONS] Routine Comment: Consult to Grab Setter [CONS] Routine Reason for SW Consult: home health follow up 08/03/16 23:58 Consult to Nurse Navigator [CONS] Routine Comment: 08/04/16 03:47 Consult to Occupational Therapy [CONS] Routine Comment: Evaluate, develop and implement POC Consult to Physical Therapy [CONS] Routine Comment: Evaluate, develop and implement POC Discharging clinician: Monse Reed Anticipated date of discharge: 08/10/16 - Patient Status Disposition: Transfer SNF Condition: Fair Functional capacity at discharge: uses cane/walker Overall status at discharge: patient is progressing back to baseline - Discharge Instructions Instructions: Chronic Obstructive Pulmonary Disease (DC), Anxiety (DC) - Diet and Activity Activity: as per physical therapy, wear oxygen at all times Diet: low fat, low cholesterol, low salt diet Hospital course: Ms. Mcdaniels is a 86 year old female admitted with altered mental status. SHe was noted to have possible UTI and sepsis due to leukocytosis and encephalopathy and was started on IV hydration and IV antibiotics. Blood and urine cultures remained negative. Her mental status returned to baseline, however she developed delirium and hallucinations likely due to elderly age, sundowning and prolonged hospitalization. Sepsis workup was repeated and returned negative except possibility of left lower Pneumonia vs atelectasis. SHe continued to receive antibiotics but had no fever or respiratory distress or cough. She was noted to have dehydration and tachycardia, which improved with IV hydration and [facility] catheterization. SHe then developed some volume overload and tachypnea, which improved with a dose of IV Lasix. She is currently medically stable for discharge to inpatient rehab based on PT recommendations and as she lives alone at home and cannot care for herself at this time. Plan of care and the reasons for encephalopathy and delirium have been discussed with her daughter multiple times and all questions answered. Patient is medically stable for transfer. - Time Spent with Patient Total time spent providing and/or coordinating discharge services: Greater than 30 minutes (45 min) - Constitutional Vitals: Temp Pulse Resp BP Pulse Ox 98.5 F 83 18 137/71 99 08/10/16 10:54 08/10/16 10:54 08/10/16 11:27 08/10/16 10:54 08/10/16 11:27 General appearance: Present: cachectic, A&O X 3, answers questions appropriately - Respiratory Respiratory exam: Present: CTAB. Absent: accessory muscle use, rales, rhonchi, wheezes - Cardiovascular Cardiovascular exam: Present: RRR, +S1, +S2. Absent: diastolic murmur, gallop, rubs, systolic murmur - VTE Documentation of Mechanical Device: Intermittent pneumatic compression device
--- NOTE | 2016-08-10 12:04 | Physician Discharge Referral ---
ExtendedCare Referral Info Transfer To: [facility] Provider in Charge: Monse Reed Provider in Charge after Transfer: PCP Institutional Level of Care: Skilled - Diagnosis (1) Respiratory distress Priority: Primary Status: Resolved (2) Tachycardia Priority: Primary Status: Resolved (3) Sepsis due to urinary tract infection Priority: Primary Status: Ruled-out (4) Acute encephalopathy Priority: Primary Status: Acute (5) Chronic obstructive pulmonary disease, unspecified Priority: Secondary Status: Chronic (6) Anxiety Priority: Secondary Status: Chronic (7) Physical deconditioning Priority: Primary Status: Chronic (8) Leukocytosis Priority: Primary Status: Resolved Expected Duration of Placement: 3 weeks Prognosis: Fair Aware of Diagnosis: Patient, Family Aware of Prognosis: Patient, Family - Transfer Medications Prescriptions: Metoprolol [Lopressor] 50 mg PO BID #30 tablet Home Medications: Aspirin 81 mg PO DAILY 07/24/16 [History] Dextrose/Vitamin D3 [Trueplus Glucose 4 gm Tab Chew] 1 tab PO DAILY 07/24/16 [ History] Famotidine [Heartburn Prevention] 20 mg PO DAILY 07/24/16 [History] Levothyroxine [Synthroid] 50 mcg PO 0630 07/24/16 [History] Lisinopril [Zestril] 5 mg PO DAILY 07/24/16 [History] Loratadine [Claritin] 10 mg PO DAILY 07/24/16 [History] Simvastatin [Zocor] 40 mg PO HS 07/24/16 [History] Ondansetron ODT [Zofran ODT] 4 mg SL Q6HR #12 tab.rapdis 07/27/16 [Rx] Acetaminophen [Tylenol Arthritis] 650 mg PO Q8H PRN 08/04/16 [History] Albuterol Sulfate [Proair Hfa] 2 puff IH Q4H PRN 08/04/16 [History] Budesonide/Formoterol 160/4.5 [Symbicort 160/4.5] 2 puff IH BIDR 08/04/16 [ History] Ergocalciferol (VITAMIN D2) [Vitamin D2] 50,000 unit PO QWEEK 08/04/16 [History] Ipratropium/Albuterol Neb [Duoneb] 3 ml IH Q6HR 08/04/16 [History] Oxygen 1 each .ROUTE AD 08/04/16 [History] Polyethylene Glycol 3350 [Smoothlax] 17 gm PO DAILY 08/04/16 [History] LORazepam [Ativan] 1 mg PO TID #30 08/10/16 [Rx] Metoprolol [Lopressor] 50 mg PO BID #30 tablet 08/10/16 [Rx] Allergies/Adverse Reactions: Allergies Penicillins Allergy (Verified 07/27/16 12:21) Hives Sulfa (Sulfonamide Antibiotics) Allergy (Verified 07/27/16 12:21) Hives - Respiratory Orders Oxygen / L per min (2L/min via NC) Smoking Cessation: Smoking cessation has been advised. For more information, call the [place] Tobacco Quit Line at 4-306-HGBU-NOW. - Advance Directives Code Status: Full Code - Mobility Orders Ambulate - Rehabiliation Orders Rehab Potential: Fair Rehab Orders: ROM Exercises, Evaluation for Physical Therapy, Evaluation for Occupational Therapy - Diet Orders No Added Salt (AZALIA), Cardiac CERTIFICATION: I certify that the transfer of the above named patient to an Extended Care Facility is necessary for the continuing treatment of the diagnosis listed. The above information is true and accurate reflection of patient's current condition. Confidential - Redisclosure prohibited without a patient's written consent.
--- NOTE | 2016-08-11 16:41 | Electrocardiograph Report ---
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
== END 2016-08-10 16:00 | DRG 71 ==
LOC: 2NNU → SUATTDRO 19:33 → 2NNU 20:15 → 3ANU 08-04 16:22 → SUATTDRO 08-05 17:22
PROVIDERS: ADMIT Internal Medicine Endocrinology, Diabetes & Metabolism; ATTEND Internal Medicine

== ENCOUNTER 2017-05-01 16:19 | Inpatient (IN) ==
[2017-05-02] MEDS ORDERED: Ondansetron 4 MG/2 ML VIAL IVP PRN (01:17)
[2017-05-02] MEDS ORDERED: Naloxone 0.4 MG/ML INJ IVP PRN (01:17)
[2017-05-02] MEDS ORDERED: Acetaminophen 325 MG TABLET PO PRN (01:18)
[2017-05-02] MEDS ORDERED: Albuterol 2.5 MG/3 ML NEBULIZER IH PRN (01:20)
--- NOTE | 2017-05-02 01:30 | Internal Med History&Physical ---
Date of Encounter: 05/02/17 Time of Encounter: 01:05 Assessment and Plan (1) Acute exacerbation of chronic obstructive airways disease Current visit: No Status: Acute Will continue IV steroids (Solumedrol 40mg IV q8h) Bronchodilator support O2 supplementation bipap as needed Repeat ABG IV levaquin CXR negative for PNA will obtain CTA chest given elevated D-dimer and prior history of DVT monitor O2 sat, goal O2 sat: 88-92% (2) Hypothyroidism (acquired) Current visit: No Status: Acute continue home medications (3) Hypertension Current visit: Yes Status: Chronic BP within acceptable range continue home meds Qualifiers: Hypertension type: essential hypertension Qualified Code(s): I10 - Essential (primary) hypertension (4) DVT prophylaxis Current visit: No Status: Acute Heparin SQ Internal Medicine - H&P: HPI Chief complaint: transfer from [facility] for SOB Admitted From: Intrahospital Transfer Plans for Post Hospital Care: Home History of present illness: Ms. Mcdaniels is a 86 year old female with PMH of COPD on LTOT (4L at baseline), CAD, HTN, HLD, GERD, Hypothyroidism who was transferred from [facility] for management of Acute respiratory distress secondary to COPD exacerbation. Pt went to the ER earlier today for worsening shortness of breath, pt was noted to be in severe respiratory distress with concern for her requiring intubation, due to which decision was made to transfer her to [facility]. Pt was placed on bipap support for 5 hours prior to her transfer to [facility]. Upon arrival she is saturating well on 5L NC and reports of feeling better. Pt was evaluated with son present at bedside. Pt reports of living alone and was recently discharged from the hospital few days ago. She lives alone and ambulates with a walker. Reports of seeing her PCP on and was started on Prednisone due to her COPD exac, her symptoms worsened in the last few days which prompted her visit to the ER. She was noted to have an elevated D-dimer but no CTA chest was done at the [facility] ER due to her respiratory status Pt wishes to be full code. Past Med Surg Social Fam HX - Past Medical History Medical history: arthritis, COPD, coronary artery disease, DVT, GERD, hyperlipidemia, hypertension, myocardial infarction, osteoporosis, thyroid disease, other Psychiatric history: anxiety, other - Past Surgical History Surgical History: appendectomy, cholecystectomy, orthopedic, other, other - Social History Smoking Status: Former smoker Smokeless Tobacco Status: No Alcohol use: none Drug use: none - Family History Father Living Status: Hx Family Cancer: Yes (prostate) Mother Living Status: Hx Family Cardiac Disorders: Yes (CHF) Hx Family Cancer: Yes (colon cancer) Sister Living Status: Hx Family Cancer: Yes (breast) Internal Medicine - H&P: Meds Famotidine [Heartburn Prevention] 20 mg PO DAILY 07/24/16 [History] Levothyroxine [Synthroid] 50 mcg PO 0630 07/24/16 [History] Lisinopril [Zestril] 5 mg PO DAILY 07/24/16 [History] Loratadine [Claritin] 10 mg PO DAILY 07/24/16 [History] Simvastatin [Zocor] 40 mg PO HS 07/24/16 [History] Albuterol Sulfate [Proair Hfa] 2 puff IH Q4H PRN 08/04/16 [History] Budesonide/Formoterol 160/4.5 [Symbicort 160/4.5] 2 puff IH BIDR 08/04/16 [ History] Oxygen 1 each .ROUTE AD 08/04/16 [History] Metoprolol [Lopressor] 50 mg PO BID #30 tablet 08/10/16 [Rx] LORazepam [Ativan] 1 mg PO TID PRN 04/10/17 [History] Acetaminophen [Tylenol] 650 mg PO Q6HR PRN tablet 04/14/17 [Rx] Albuterol Neb [Proventil Neb] 2.5 mg IH Q4H PRN inhsol 04/14/17 [Rx] Aspirin 81 mg PO DAILY tab.chew 04/14/17 [Rx] Metoprolol [Lopressor] 50 mg PO BID tablet 04/21/17 [Rx] Docusate [Colace] 100 mg PO DAILY 05/02/17 [History] GuaiFENesin/Dextromethorphan [Robitussin/Dm] 10 ml PO PRN PRN 05/02/17 [History] Ipratropium/Albuterol Neb [Duoneb] 3 ml IH PRN PRN 05/02/17 [History] predniSONE [PredniSONE] 10 mg PO DAILY 05/02/17 [History] 3 Allergy/AdvReac Type Severity Reaction Status Date / Time Penicillins Allergy Hives Verified 04/10/17 11:34 Sulfa (Sulfonamide Allergy Hives Verified 04/10/17 11:34 Antibiotics) All Systems PM: A 10-system review of systems was performed and is negative for pertinent findings except as documented above in the HPI. - Constitutional Constitutional: as per HPI - Constitutional Vitals: Temp Pulse Resp BP Pulse Ox 98.4 F 115 16 106/61 99 05/01/17 23:59 05/01/17 23:59 05/01/17 23:59 05/01/17 23:59 05/01/17 23:59 General appearance: Present: cooperative, A&O X 3, pleasant, no acute distress, underweight, answers questions appropriately - Head Head exam: Present: atraumatic, normocephalic - Eye Eye exam: Present: conjuntiva pink, sclera anicteric - Respiratory Respiratory exam: Present: wheezes (diffuse expiratory wheezing, decreased air entry bilaterally ). Absent: accessory muscle use, respiratory distress - Cardiovascular Cardiovascular exam: Present: +S1, +S2, tachycardia. Absent: systolic murmur - GI/Abdominal GI/Abdominal exam: Present: normal bowel sounds, soft, no peritoneal signs. Absent: distended, tenderness - Extremities Exam Extremities exam: Present: pedal edema (trace pedal edema bilaterally ), warm, radial pulses palpable and symmetrical. Absent: calf tenderness - Neurological Exam Neurological exam: Present: alert, oriented X3
[2017-05-02] MEDS: MethylPREDNISolone 40 MG/ML VIAL IVP SCH ×3 (01:50→15:51)
[2017-05-02 01:54] LABS: ABG Base Excess 12 mEq/L (-2 to 3); ABG HCO3 41 mEq/L (21-27); ABG Oxygen Saturation 99 % (95-98); ABG PCO2 78 mmHg (35-45); ABG PH 7.33 pH Units (7.32-7.45); ABG PO2 135 mmHg (85-104); ABG TCO2 43 mEq/L (20-26)
[2017-05-02 02:10] LABS: Basophils % 0.1 %; Hematocrit 36.3 % (35.3-44.9); Hemoglobin 11.2 g/dL (11.5-15.4); Immature Granulocytes % 0.7 % (0-4); Lymphocytes # 0.3 K/mcL (0.6-4.6); Mean Corpuscular HGB Conc 30.9 g/dL (31.6-35.5); Mean Corpuscular Hemoglobin 33.4 pg (28.0-33.3); Mean Corpuscular Volume 108.4 fL (83.0-100.0); Mean Platelet Volume 11.2 fL (9.4-12.4); Monocytes # 2.4 K/mcL (0.0-1.3); Neutrophils # 5.7 K/mcL (1.6-8.9); Platelet Count 145 K/mcL (140-400); Red Blood Count 3.35 M/mcL (3.82-4.97); Red Cell Distribution Width 14.4 % (11.5-14.5); Segmented Neutrophils % 67.2 %
[2017-05-02 02:25] LABS: BUN/Creatinine Ratio 42 (6-26); Blood Urea Nitrogen 21 mg/dL (8-23); Calcium 8.8 mg/dL (8.6-10.3); Carbon Dioxide 35 mEq/L (23-29); Chloride 101 mEq/L (98-107); Glucose 101 mg/dL (70-105); Osmolality,Calculated 295 (280-300); Phosphorous 2.7 mg/dL (2.7-4.5); Potassium 4.3 mEq/L (3.5-5.1); Sodium 141 mEq/L (136-145); eGFR For African Americans > 60 (> 60); eGFR For Non-African Americans > 60 (> 60)
[2017-05-02 02:29] LABS: Platelet Estimate Slight Decrease (Normal)
[2017-05-02 02:30] LABS: Hypochromasia Present (Not Present); Large Platelets Present (Not Present)
[2017-05-02] MEDS: Levalbuterol Neb 1.25 MG/3 ML IH SCH ×4 (03:31→20:42)
[2017-05-02] MEDS: *HR* Heparin 5,000 UNIT/ML VIAL SQ SCH ×2 (05:53→18:12)
[2017-05-02] MEDS: *HR* LORazepam 1 MG TABLET PO PRN (06:08)
[2017-05-02] MEDS: Loratadine 10 MG TABLET PO SCH (08:07)
[2017-05-02] MEDS: Aspirin 81 MG TAB.CHEW PO SCH (08:07)
[2017-05-02] MEDS: Budesonide/Formoterol 160/4.5 MDI IH SCH ×2 (08:27→20:42)
--- NOTE | 2017-05-02 09:43 | Pulmonology Consult Note ---
Date of Encounter: 05/02/17 Time of Encounter: 08:00 Assessment and Plan (1) Acute on chronic respiratory failure Current Visit: Yes Status: Acute Patient has chronic hypoxic and hypercapnic respiratory due to end stage COPD now acutely decompensated due to COPD exacerbation . For today to continue BIPAP 10/5 with break in the evening . To keep her NPO today .To keep FIO2 to maintain SPO2 around 88%-90%. Since patient has chronic hypercapnic respiratory she should be qualified for home BIPAP before she is discharged from home. Qualifiers: Respiratory failure complication: hypoxia and hypercapnia Qualified Code(s) : J96.21 - Acute and chronic respiratory failure with hypoxia; J96.22 - Acute and chronic respiratory failure with hypercapnia; J96.22 - Acute and chronic respiratory failure with hypercapnia; J96.22 - Acute and chronic respiratory failure with hypercapnia (2) Acute exacerbation of chronic obstructive airways disease Current Visit: No Status: Acute Patient has significant emphysematous changes agree with bronchodilators and steroid therapy . (3) Aspiration into airway Current Visit: Yes Status: Acute Patient might have recurrent aspirations as she has a dilated esophagus with some secretions in the higher generation airways agree with Cefepime and flagyl no risk factor for MRSA . Will need formal speech evaluation for recurrent aspiration . To keep her NPO till speech evaluation . 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 was recently discharged from the hospital after she went home over past 2 days worsening shortness of breadth with some cough and sputum production , patient was evaluated at [facility] CTA was negative for acute pulmonary embolism , but showed significant centrilobular emphysema , patient is a chronic smoker , has significant bronchial inflammation admitted under hospitalist and she is treated acute exacerbation of COPD pulmonary was consulted as she is needing non invasive ventilatory support BIPAP after using BIPAP in the morning she is feeling better , overnight she could not use BIPAP because of anxiety , patient has recurrent pneumonia , denies any chest pain or tightness . Patient is here for exacerbation of COPD . Past Med Surg Social Fam HX - Past Medical History Medical history: arthritis, COPD, coronary artery disease, DVT, GERD, hyperlipidemia, hypertension, myocardial infarction, osteoporosis, thyroid disease, other Psychiatric history: anxiety, other - Past Surgical History Surgical History: appendectomy, cholecystectomy, orthopedic, other, other - Social History Smoking Status: Former smoker Smokeless Tobacco Status: No Alcohol use: none Drug use: none - Family History Father Living Status: Hx Family Cancer: Yes (prostate) Mother Living Status: Hx Family Cardiac Disorders: Yes (CHF) Hx Family Cancer: Yes (colon cancer) Sister Living Status: Hx Family Cancer: Yes (breast) Medications and Allergies Famotidine [Heartburn Prevention] 20 mg PO DAILY 07/24/16 [History] Levothyroxine [Synthroid] 50 mcg PO 0630 07/24/16 [History] Lisinopril [Zestril] 5 mg PO DAILY 07/24/16 [History] Loratadine [Claritin] 10 mg PO DAILY 07/24/16 [History] Simvastatin [Zocor] 40 mg PO HS 07/24/16 [History] Albuterol Sulfate [Proair Hfa] 2 puff IH Q4H PRN 08/04/16 [History] Budesonide/Formoterol 160/4.5 [Symbicort 160/4.5] 2 puff IH BIDR 08/04/16 [ History] Oxygen 1 each .ROUTE AD 08/04/16 [History] Metoprolol [Lopressor] 50 mg PO BID #30 tablet 08/10/16 [Rx] LORazepam [Ativan] 1 mg PO TID PRN 04/10/17 [History] Acetaminophen [Tylenol] 650 mg PO Q6HR PRN tablet 04/14/17 [Rx] Albuterol Neb [Proventil Neb] 2.5 mg IH Q4H PRN inhsol 04/14/17 [Rx] Aspirin 81 mg PO DAILY tab.chew 04/14/17 [Rx] Metoprolol [Lopressor] 50 mg PO BID tablet 04/21/17 [Rx] Docusate [Colace] 100 mg PO DAILY 05/02/17 [History] GuaiFENesin/Dextromethorphan [Robitussin/Dm] 10 ml PO PRN PRN 05/02/17 [History] Ipratropium/Albuterol Neb [Duoneb] 3 ml IH PRN PRN 05/02/17 [History] predniSONE [PredniSONE] 10 mg PO DAILY 05/02/17 [History] 3 Allergy/AdvReac Type Severity Reaction Status Date / Time Penicillins Allergy Hives Verified 04/10/17 11:34 Sulfa (Sulfonamide Allergy Hives Verified 04/10/17 11:34 Antibiotics) All Systems: A 10-system review of systems was performed and is negative for pertinent findings except as documented above in the HPI. Physical Examination Vital Signs: Vital Signs, Last 4 Hours Temp Pulse Resp BP Pulse Ox 05/02/17 08:32 27 96 05/02/17 08:23 99 05/02/17 07:42 16 100 05/02/17 07:03 98.8 F 110 18 100/59 99 Effort: mildly labored Auscultation: bilateral: wheezes, other (Scattered crackles ) Results - Laboratory Findings CBC and BMP: 05/02/17 02:01 05/02/17 02:01 ABG ABG pH 7.33 pH Units (7.32-7.45) 05/02/17 01:50 ABG pCO2 78 mmHg (35-45) H* 05/02/17 01:50 ABG pO2 135 mmHg (85-104) H 05/02/17 01:50 ABG O2 Saturation 99 % (95-98) H 05/02/17 01:50 Abnormal lab findings: Abnormal lab results RBC 3.35 M/mcL (3.82-4.97) L 05/02/17 02:01 Hgb 11.2 g/dL (11.5-15.4) L D 05/02/17 02:01 MCV 108.4 fL (83.0-100.0) H 05/02/17 02:01 MCH 33.4 pg (28.0-33.3) H 05/02/17 02:01 MCHC 30.9 g/dL (31.6-35.5) L 05/02/17 02:01 Lymphocytes # 0.3 K/mcL (0.6-4.6) L 05/02/17 02:01 Monocytes # 2.4 K/mcL (0.0-1.3) H 05/02/17 02:01 Platelet Estimate Slight Decrease (Normal) L 05/02/17 02:01 Large Platelets Present (Not Present) A 05/02/17 02:01 Hypochromasia Present (Not Present) A 05/02/17 02:01 ABG pCO2 78 mmHg (35-45) H* 05/02/17 01:50 ABG pO2 135 mmHg (85-104) H 05/02/17 01:50 ABG HCO3 41 mEq/L (21-27) H 05/02/17 01:50 ABG Total CO2 43 mEq/L (20-26) H 05/02/17 01:50 ABG O2 Saturation 99 % (95-98) H 05/02/17 01:50 ABG Base Excess 12 mEq/L (-2 to 3) H 05/02/17 01:50 Carbon Dioxide 35 mEq/L (23-29) H 05/02/17 02:01 Creatinine 0.50 mg/dL (0.60-1.20) L 05/02/17 02:01 BUN/Creatinine Ratio 42 (6-26) H 05/02/17 02:01 Troponin I 0.05 ng/mL (< 0.04) H* 05/02/17 02:01 - Clinical Findings Intake & Output: Intake & Output 05/01/17 05/02/17 05/02/17 23:59 07:59 15:59 Intake Total 0 / 0 100 / 100 Output Total 450 / 450 0 / 0 Balance -450 / -450 100 / 100 Weight 44 kg Consult Discharge Plan - Plan Referrals: Nuzhat Wood MD [Primary Care Provider] -
[2017-05-02 11:03] LABS: Adenovirus Not Detected (Not Detect); Bordetella Pertussis Not Detected (Not Detect); Chlamydophila pneumoniae Not Detected (Not Detect); Coronavirus 229E Not Detected (Not Detect); Coronavirus HKU1 Not Detected (Not Detect); Coronavirus NL63 Not Detected (Not Detect); Coronavirus OC43 Not Detected (Not Detect); Human Metapneumovirus Not Detected (Not Detect); Human Rhinovirus/Enterovirus Not Detected (Not Detect); Influenza A Subtype 2009 H1 Not Detected (Not Detect); Influenza A Untypeable Not Detected (Not Detect); Influenza B Not Detected (Not Detect); Mycoplasma pneumoniae Not Detected (Not Detect); Parainfluenza Virus 1 Not Detected (Not Detect); Parainfluenza Virus 2 Not Detected (Not Detect); Parainfluenza Virus 3 Not Detected (Not Detect); Parainfluenza Virus 4 ***DETECTED*** (Not Detect); Respiratory Syncytial Virus Not Detected (Not Detect)
[2017-05-02] MEDS: MetroNIDAZOLE 500 MG/100 ML 500 MG/100 ML BAG IVPB SCH (15:51)
[2017-05-02] MEDS ORDERED: Levofloxacin 500 MG/100 ML 500 MG/100 ML BAG IVPB SCH (16:00)
[2017-05-02] MEDS: Cefepime HCl 1,000 MG in Water for inj. (sterile) 20 ML 10 ML IVP SCH (18:12)
[2017-05-03] MEDS: MetroNIDAZOLE 500 MG/100 ML 500 MG/100 ML BAG IVPB SCH ×3 (00:06→16:08)
[2017-05-03] MEDS: MethylPREDNISolone 40 MG/ML VIAL IVP SCH ×3 (00:06→17:36)
[2017-05-03] MEDS: Levalbuterol Neb 1.25 MG/3 ML IH SCH ×4 (04:06→21:10)
[2017-05-03 04:19] LABS: Basophils % 0.1 %; Hematocrit 34.6 % (35.3-44.9); Hemoglobin 10.7 g/dL (11.5-15.4); Immature Granulocytes % 1.3 % (0-4); Lymphocytes # 0.2 K/mcL (0.6-4.6); Lymphocytes % 1.8 %; Mean Corpuscular HGB Conc 30.9 g/dL (31.6-35.5); Mean Corpuscular Hemoglobin 33.3 pg (28.0-33.3); Mean Corpuscular Volume 107.8 fL (83.0-100.0); Mean Platelet Volume 11.6 fL (9.4-12.4); Monocytes % 11.7 %; Neutrophils # 7.6 K/mcL (1.6-8.9); Platelet Count 113 K/mcL (140-400); Red Blood Count 3.21 M/mcL (3.82-4.97); Red Cell Distribution Width 14.7 % (11.5-14.5); Segmented Neutrophils % 85.1 %
[2017-05-03] MEDS: *HR* Heparin 5,000 UNIT/ML VIAL SQ SCH ×2 (05:10→17:38)
[2017-05-03] MEDS: Cefepime HCl 1,000 MG in Water for inj. (sterile) 20 ML 10 ML IVP SCH ×2 (05:10→17:35)
[2017-05-03 05:16] LABS: BUN/Creatinine Ratio 62 (6-26); Blood Urea Nitrogen 33 mg/dL (8-23); Carbon Dioxide 32 mEq/L (23-29); Chloride 104 mEq/L (98-107); Glucose 117 mg/dL (70-105); Osmolality,Calculated 306 (280-300); Potassium 4.2 mEq/L (3.5-5.1); Sodium 144 mEq/L (136-145); eGFR For African Americans > 60 (> 60); eGFR For Non-African Americans > 60 (> 60)
[2017-05-03 05:59] LABS: Platelet Estimate Decreased (Normal)
[2017-05-03] MEDS: Loratadine 10 MG TABLET PO SCH (10:01)
[2017-05-03] MEDS: Aspirin 81 MG TAB.CHEW PO SCH (10:01)
[2017-05-03] MEDS: Budesonide/Formoterol 160/4.5 MDI IH SCH ×2 (10:13→21:10)
--- NOTE | 2017-05-03 10:53 | Pulmonology Progress Note ---
Date of Encounter: 05/03/17 Time of Encounter: 09:35 Assessment and Plan (1) Acute exacerbation of chronic obstructive airways disease Current Visit: No Status: Acute Patient is complaining of an anxiety otherwise her oxygen saturation is in the 90s and suspect overall prognosis is poor. Lowering systemic steroid may help and will change it to twice a day. Otherwise she is on appropriate treatment. (2) Aspiration into airway Current Visit: Yes Status: Acute Speech evaluation is extremely important and suspect aspiration. Qualifiers: Encounter type: initial encounter Qualified Code(s): T17.908A - Unspecified foreign body in respiratory tract, part unspecified causing other injury, initial encounter Subjective Principal diagnosis: Shortness of breath Interval history: Patient is a poor historian and only thing she is complaining is an anxiety Objective PUL Vital signs: Last Vital Signs Temp 98.0 F 05/03/17 07:18 Pulse 100 05/03/17 07:18 Resp 18 05/03/17 07:18 BP 123/83 05/03/17 07:18 Pulse Ox 99 05/03/17 07:18 General appearance: appears uncomfortable Eyes: nonicteric Neck: supple Effort: mildly labored Auscultation: bilateral: diminished breath sounds Percussion: bilateral: not dull Cardiovascular: irregular rhythm Gastrointestinal: normoactive bowel sounds, non-distended Extremities: no cyanosis non-focal exam anxious Results - Laboratory Findings CBC and BMP: 05/03/17 04:08 05/03/17 04:08 ABG ABG pH 7.33 pH Units (7.32-7.45) 05/02/17 01:50 ABG pCO2 78 mmHg (35-45) H* 05/02/17 01:50 ABG pO2 135 mmHg (85-104) H 05/02/17 01:50 ABG O2 Saturation 99 % (95-98) H 05/02/17 01:50 Abnormal lab findings: Abnormal lab results RBC 3.21 M/mcL (3.82-4.97) L 05/03/17 04:08 Hgb 10.7 g/dL (11.5-15.4) L 05/03/17 04:08 Hct 34.6 % (35.3-44.9) L 05/03/17 04:08 MCV 107.8 fL (83.0-100.0) H 05/03/17 04:08 MCHC 30.9 g/dL (31.6-35.5) L 05/03/17 04:08 RDW 14.7 % (11.5-14.5) H 05/03/17 04:08 Plt Count 113 K/mcL (140-400) L 05/03/17 04:08 Lymphocytes # 0.2 K/mcL (0.6-4.6) L 05/03/17 04:08 Platelet Estimate Decreased (Normal) L 05/03/17 04:08 Large Platelets Present (Not Present) A 05/02/17 02:01 Hypochromasia Present (Not Present) A 05/02/17 02:01 ABG pCO2 78 mmHg (35-45) H* 05/02/17 01:50 ABG pO2 135 mmHg (85-104) H 05/02/17 01:50 ABG HCO3 41 mEq/L (21-27) H 05/02/17 01:50 ABG Total CO2 43 mEq/L (20-26) H 05/02/17 01:50 ABG O2 Saturation 99 % (95-98) H 05/02/17 01:50 ABG Base Excess 12 mEq/L (-2 to 3) H 05/02/17 01:50 Carbon Dioxide 32 mEq/L (23-29) H 05/03/17 04:08 BUN 33 mg/dL (8-23) H 05/03/17 04:08 Creatinine 0.53 mg/dL (0.60-1.20) L 05/03/17 04:08 BUN/Creatinine Ratio 62 (6-26) H 05/03/17 04:08 Glucose 117 mg/dL (70-105) H 05/03/17 04:08 POC Glucose 124 (58-89) H 05/03/17 05:33 Calculated Osmolality 306 (280-300) H 05/03/17 04:08 Troponin I 0.05 ng/mL (< 0.04) H* 05/02/17 02:01 Parainfluenza 4 (PCR) DETECTED (Not Detect) A 05/02/17 09:53 - Diagnostic Findings CT scan - chest: report reviewed, image reviewed - Clinical Findings Intake & Output: Intake & Output 05/02/17 05/03/17 05/03/17 23:59 07:59 15:59 Intake Total 110 / 110 100 / 100 0 / 0 Output Total 350 / 350 Balance 110 / 110 -250 / -250 0 / 0 Weight 45 kg Consult Discharge Plan - Plan Referrals: Nuzhat Wood MD [Primary Care Provider] -
[2017-05-03] MEDS: *HR* LORazepam 1 MG TABLET PO PRN ×3 (10:55→20:57)
--- NOTE | 2017-05-03 11:26 | Internal Med Progress Note ---
Date of Encounter: 05/03/17 Time of Encounter: 11:22 - Assessment and plan (1) Acute on chronic respiratory failure Current Visit: Yes Status: Acute Assessment and plan: Due to underlying severe COPD. Initially required BiPAP support, currently improving. Qualifiers: Respiratory failure complication: hypoxia and hypercapnia Qualified Code(s) : J96.21 - Acute and chronic respiratory failure with hypoxia; J96.22 - Acute and chronic respiratory failure with hypercapnia; J96.22 - Acute and chronic respiratory failure with hypercapnia; J96.22 - Acute and chronic respiratory failure with hypercapnia (2) Pneumonia Current Visit: Yes Status: Acute Assessment and plan: Suspected aspiration based on CT chest imaging. Continue IV cefepime and Flagyl. 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 Aspiration precautions. Continue supportive care and supplemental O2. Qualifiers: Pneumonia type: due to unspecified organism Laterality: bilateral Lung location: unspecified part of lung Qualified Code(s): J18.9 - Pneumonia, unspecified organism (3) Acute exacerbation of chronic obstructive airways disease Current Visit: Yes Status: Acute Assessment and plan: Improving slowly. Pulmonology on board, appreciate recommendations. Continue tapering IV steroids as tolerated. Continue when necessary bronchodilators, supplemental oxygen, noninvasive positive pressure ventilation as needed. We will order overnight BiPAP qualification study. ABG shows carbon dioxide retention. (4) CAD (coronary artery disease) Current Visit: Yes Status: Chronic Qualifiers: Coronary Disease-Associated Artery/Lesion type: minto artery [place] vs. transplanted heart: minto heart Associated angina: without angina Qualified Code(s): I25.10 - Atherosclerotic heart disease of minto coronary artery without angina pectoris (5) Hypothyroidism (acquired) Current Visit: Yes Status: Chronic Assessment and plan: Continue levothyroxine. (6) Physical deconditioning Current Visit: Yes Status: Chronic Assessment and plan: services engineer on board. Patient does have home health services in place. May benefit from placement in extended care facility as she is not safe to be living alone with severe COPD and respiratory failure. - Subjective Interval history: REPORTS feeling slightly better; not in distress today; has been on BiPAP overnight, needs qualification study prior to discharge; no chest or abdominal pain, nausea, vomiting; underwent modified barium swallow; - Constitutional Vitals: Temp Pulse Resp BP Pulse Ox 98.0 F 100 18 123/83 99 05/03/17 07:18 05/03/17 07:18 05/03/17 07:18 05/03/17 07:18 05/03/17 07:18 General appearance: Present: cooperative, A&O X 3, underweight, answers questions appropriately - Respiratory Respiratory exam: Present: CTAB, wheezes (bibasal posterior expiratory wheezing , improving). Absent: accessory muscle use, rales, rhonchi - Cardiovascular Cardiovascular exam: Present: RRR, +S1, +S2. Absent: diastolic murmur, gallop, rubs, systolic murmur - GI/Abdominal GI/Abdominal exam: Present: normal bowel sounds, soft, no peritoneal signs. Absent: distended, tenderness - Extremities Exam Extremities exam: Present: full ROM, pedal edema, warm, radial pulses palpable and symmetrical. Absent: calf tenderness, cyanotic - Neurological Exam Neurological exam: Present: CN II-XII intact, oriented X3, no focal deficits. Absent: pronater drift, facial droop, speech deficit Internal Medicine: Result - Labs CBC & Chem 7: 05/03/17 04:08 05/03/17 04:08 Labs: Short CBC 05/03/17 Range/Units 04:08 WBC 8.9 (4.3-11.1) K/mcL Hgb 10.7 L (11.5-15.4) g/dL Hct 34.6 L (35.3-44.9) % Plt Count 113 L (140-400) K/mcL Neutrophils # 7.6 (1.6-8.9) K/mcL BMP 05/03/17 04:08 Sodium 144 Potassium 4.2 Chloride 104 Carbon Dioxide 32 H BUN 33 H Creatinine 0.53 L Glucose 117 H Calcium 9.0 - ABG Interpretation ABG results: ABG ABG pH 7.33 pH Units (7.32-7.45) 05/02/17 01:50 ABG pCO2 78 mmHg (35-45) H* 05/02/17 01:50 ABG pO2 135 mmHg (85-104) H 05/02/17 01:50 ABG O2 Saturation 99 % (95-98) H 05/02/17 01:50 - Impressions Impressions Videofluoroscopic Swallow 05/03/17 09:29 IMPRESSION: Findings of dysphagia as described above. Please see separate speech pathology report for full discussion of findings and recommendations. D/ / 05/03/2017 10:44:01 Uriel Lopez MD / earnold Interpreting Provider: Uriel Lopez MD Consult Discharge Plan - Plan Instructions: Acute Respiratory Distress Syndrome (DC), Hypothyroidism (DC), Chronic Hypertension (DC), Anemia (GEN), Pneumonia (DC) Referrals: Nuzhat Wood MD [Primary Care Provider] -
[2017-05-04] MEDS: MetroNIDAZOLE 500 MG/100 ML 500 MG/100 ML BAG IVPB SCH ×4 (00:49→23:58)
[2017-05-04] MEDS: Levalbuterol Neb 1.25 MG/3 ML IH SCH ×4 (03:33→22:01)
[2017-05-04] MEDS: Cefepime HCl 1,000 MG in Water for inj. (sterile) 20 ML 10 ML IVP SCH ×2 (06:26→20:49)
[2017-05-04] MEDS: MethylPREDNISolone 40 MG/ML VIAL IVP SCH ×2 (06:27→20:49)
[2017-05-04] MEDS: *HR* Heparin 5,000 UNIT/ML VIAL SQ SCH ×2 (06:27→20:50)
[2017-05-04] MEDS: Budesonide/Formoterol 160/4.5 MDI IH SCH ×2 (10:51→22:01)
--- NOTE | 2017-05-04 12:03 | Internal Med Progress Note ---
Date of Encounter: 05/04/17 Time of Encounter: 12:01 - Assessment and plan (1) Acute on chronic respiratory failure Current Visit: Yes Status: Acute Assessment and plan: Due to underlying severe COPD. continue supplemental oxygen and when necessary BiPAP support. Overnight BiPAP qualification study completed, patient did not qualify. Repeat test tonight. Qualifiers: Respiratory failure complication: hypoxia and hypercapnia Qualified Code(s) : J96.21 - Acute and chronic respiratory failure with hypoxia; J96.22 - Acute and chronic respiratory failure with hypercapnia; J96.22 - Acute and chronic respiratory failure with hypercapnia; J96.22 - Acute and chronic respiratory failure with hypercapnia (2) Pneumonia Current Visit: Yes Status: Acute Assessment and plan: Suspected aspiration based on CT chest imaging. Blood cultures remain negative. Continue IV cefepime and Flagyl. LABOR CUSTODIAN consulted, patient underwent modified barium Swallow study, cleared for thin liquids with no straws. Aspiration precautions. Continue supportive care and supplemental O2. Qualifiers: Pneumonia type: due to unspecified organism Laterality: bilateral Lung location: unspecified part of lung Qualified Code(s): J18.9 - Pneumonia, unspecified organism (3) Acute exacerbation of chronic obstructive airways disease Current Visit: Yes Status: Acute Assessment and plan: Respiratory viral panel positive for parainfluenza virus. Patient likely has exacerbation of COPD due to acute viral bronchitis. Improving slowly. Pulmonology on board, appreciate recommendations. Continue tapering IV steroids as tolerated. Continue when necessary bronchodilators, supplemental oxygen, noninvasive positive pressure ventilation as needed. overnight BiPAP qualification study to be repeated. ABG shows carbon dioxide retention. Physical therapy evaluation pending. (4) CAD (coronary artery disease) Current Visit: Yes Status: Chronic Qualifiers: Coronary Disease-Associated Artery/Lesion type: [place] artery [place] vs. transplanted heart: [place] heart Associated angina: without angina Qualified Code(s): I25.10 - Atherosclerotic heart disease of [place] coronary artery without angina pectoris (5) Hypothyroidism (acquired) Current Visit: Yes Status: Chronic Assessment and plan: Continue levothyroxine. (6) Physical deconditioning Current Visit: Yes Status: Chronic Assessment and plan: building services coordinator on board. Patient does have home health services in place. May benefit from placement in extended care facility as she is not safe to be living alone with severe COPD and respiratory failure. However, patient is not agreeable. - Subjective Interval history: Improving but had some dyspnea earlier and had to be placed on BiPAP; doing well at this time; improving cough; no chest pain, dizziness, palpitations; refuses rehab placement, states she has someone to stay with her at home; - Constitutional Vitals: Temp Pulse Resp BP Pulse Ox 97.6 F 96 17 150/82 96 05/04/17 10:31 05/04/17 10:31 05/04/17 10:31 05/04/17 10:31 05/04/17 10:31 General appearance: Present: cachectic, cooperative, A&O X 3, underweight, answers questions appropriately - Respiratory Respiratory exam: Present: CTAB (coarse breath sounds B/L). Absent: accessory muscle use, rales, rhonchi, wheezes - Cardiovascular Cardiovascular exam: Present: RRR, +S1, +S2. Absent: diastolic murmur, gallop, rubs, systolic murmur - GI/Abdominal GI/Abdominal exam: Present: normal bowel sounds, soft, no peritoneal signs. Absent: distended, tenderness - Extremities Exam Extremities exam: Present: full ROM, warm, radial pulses palpable and symmetrical. Absent: calf tenderness, cyanotic, pedal edema Internal Medicine: Result - Labs CBC & Chem 7: 05/03/17 04:08 05/03/17 04:08 - ABG Interpretation ABG results: ABG ABG pH 7.33 pH Units (7.32-7.45) 05/02/17 01:50 ABG pCO2 78 mmHg (35-45) H* 05/02/17 01:50 ABG pO2 135 mmHg (85-104) H 05/02/17 01:50 ABG O2 Saturation 99 % (95-98) H 05/02/17 01:50 Consult Discharge Plan - Plan Instructions: Acute Respiratory Distress Syndrome (DC), Hypothyroidism (DC), Chronic Hypertension (DC), Anemia (GEN), Pneumonia (DC) Referrals: Nuzhat Wood MD [Primary Care Provider] - 05/10/17 3:00 pm (Please follow up as schedule...)
[2017-05-04] MEDS: Loratadine 10 MG TABLET PO SCH (15:40)
[2017-05-04] MEDS: Aspirin 81 MG TAB.CHEW PO SCH (15:40)
[2017-05-04] MEDS: *HR* LORazepam 1 MG TABLET PO PRN (20:51)
[2017-05-05] MEDS: Levalbuterol Neb 1.25 MG/3 ML IH SCH ×4 (03:55→23:44)
[2017-05-05] MEDS: Cefepime HCl 1,000 MG in Water for inj. (sterile) 20 ML 10 ML IVP SCH ×2 (05:51→17:45)
[2017-05-05] MEDS: MethylPREDNISolone 40 MG/ML VIAL IVP SCH ×2 (05:51→17:46)
[2017-05-05] MEDS: *HR* Heparin 5,000 UNIT/ML VIAL SQ SCH ×2 (05:53→17:46)
[2017-05-05] MEDS: *HR* LORazepam 1 MG TABLET PO PRN ×3 (05:56→19:53)
[2017-05-05] MEDS: MetroNIDAZOLE 500 MG/100 ML 500 MG/100 ML BAG IVPB SCH (08:43)
[2017-05-05] MEDS: Aspirin 81 MG TAB.CHEW PO SCH (08:47)
[2017-05-05] MEDS: Loratadine 10 MG TABLET PO SCH (08:47)
[2017-05-05] MEDS: Budesonide/Formoterol 160/4.5 MDI IH SCH ×2 (10:13→23:44)
--- NOTE | 2017-05-05 12:36 | Internal Med Progress Note ---
Date of Encounter: 05/05/17 Time of Encounter: 12:34 - Assessment and plan (1) Acute exacerbation of chronic obstructive airways disease Current Visit: Yes Status: Acute Assessment and plan: Respiratory viral panel positive for parainfluenza virus. Patient likely has exacerbation of COPD due to acute viral bronchitis. Improving slowly. Pulmonology on board, appreciate recommendations. Continue tapering IV steroids as tolerated. Continue with nasal cannula oxygen today. Use BiPAP as needed. She still has wheezes in the posterior lung rooney. If she continues to do well by tomorrow she may be discharged. Continue nebs (2) Acute on chronic respiratory failure Current Visit: Yes Status: Acute Assessment and plan: As above. Qualifiers: Respiratory failure complication: hypoxia and hypercapnia Qualified Code(s) : J96.21 - Acute and chronic respiratory failure with hypoxia; J96.22 - Acute and chronic respiratory failure with hypercapnia; J96.22 - Acute and chronic respiratory failure with hypercapnia; J96.22 - Acute and chronic respiratory failure with hypercapnia (3) Hypothyroidism (acquired) Current Visit: Yes Status: Chronic Assessment and plan: Continue levothyroxine. (4) Physical deconditioning Current Visit: Yes Status: Chronic Assessment and plan: director of career services on board. Patient does have home health services in place. PT OT ordered (5) Pneumonia Current Visit: Yes Status: Acute Assessment and plan: Suspected aspiration based on CT chest imaging. Blood cultures remain negative. Continue IV cefepime and Flagyl. RECEIVING LEAD consulted, patient underwent modified barium Swallow study, cleared for thin liquids with no straws. Aspiration precautions. Continue supportive care and supplemental O2. Qualifiers: Pneumonia type: due to unspecified organism Laterality: bilateral Lung location: unspecified part of lung Qualified Code(s): J18.9 - Pneumonia, unspecified organism (6) CAD (coronary artery disease) Current Visit: Yes Status: Chronic Assessment and plan: Continue home meds she is on aspirin and statin beta lisette. Qualifiers: Coronary Disease-Associated Artery/Lesion type: [place] artery [place] vs. transplanted heart: [place] heart Associated angina: without angina Qualified Code(s): I25.10 - Atherosclerotic heart disease of [place] coronary artery without angina pectoris (7) DVT prophylaxis Current Visit: No Status: Acute Assessment and plan: Heparin subcutaneous - Subjective Interval history: Patient was seen and examined. She is off BiPAP this morning. She was put on about 3-4 L of nasal cannula oxygen. While is in the room she was satting in the upper 90s. She still feels short of breath however. She has been afebrile. She says she is feeling significantly better compared to what she came in with. - Constitutional Vitals: Temp Pulse Resp BP Pulse Ox 97.6 F 85 20 120/46 97 05/05/17 12:18 05/05/17 12:18 05/05/17 12:18 05/05/17 12:18 05/05/17 12:18 General appearance: Present: cachectic, cooperative, A&O X 3, underweight, answers questions appropriately Exam: GEN: NAD CVS: RRR. S1, S2, No m/r/g RESP: Diffuse expiratory posterior wheezes in the lower lung rooney. ABD: Soft, NT, ND, +BS EXT: No edema. 2+ DP. No rashes NEURO: Nonfocal Internal Medicine: Result - Labs CBC & Chem 7: 05/03/17 04:08 05/03/17 04:08 - ABG Interpretation ABG results: ABG ABG pH 7.33 pH Units (7.32-7.45) 05/02/17 01:50 ABG pCO2 78 mmHg (35-45) H* 05/02/17 01:50 ABG pO2 135 mmHg (85-104) H 05/02/17 01:50 ABG O2 Saturation 99 % (95-98) H 05/02/17 01:50 Consult Discharge Plan - Plan Instructions: Acute Respiratory Distress Syndrome (DC), Hypothyroidism (DC), Chronic Hypertension (DC), Anemia (GEN), Pneumonia (DC) Referrals: Nuzhat Wood MD [Primary Care Provider] - 05/10/17 3:00 pm (Please follow up as schedule...)
[2017-05-05] MEDS: metroNIDAZOLE 500 MG TABLET PO SCH ×2 (17:40→19:52)
[2017-05-06] MEDS: Levalbuterol Neb 1.25 MG/3 ML IH SCH ×3 (03:43→16:03)
[2017-05-06 04:07] LABS: Hemoglobin 10.3 g/dL (11.5-15.4); Immature Granulocytes % 1.2 % (0-4); Immature Platelets 10.7 % (1.1-6.1); Lymphocytes # 0.6 K/mcL (0.6-4.6); Lymphocytes % 12.4 %; Mean Corpuscular HGB Conc 30.3 g/dL (31.6-35.5); Mean Platelet Volume 11.7 fL (9.4-12.4); Monocytes # 0.4 K/mcL (0.0-1.3); Monocytes % 7.4 %; Neutrophils # 4.1 K/mcL (1.6-8.9); Platelet Count 108 K/mcL (140-400); Red Blood Count 3.12 M/mcL (3.82-4.97); Red Cell Distribution Width 14.5 % (11.5-14.5)
[2017-05-06 04:44] LABS: BUN/Creatinine Ratio 61 (6-26); Blood Urea Nitrogen 27 mg/dL (8-23); Calcium 8.9 mg/dL (8.6-10.3); Carbon Dioxide 42 mEq/L (23-29); Chloride 104 mEq/L (98-107); Glucose 122 mg/dL (70-105); Osmolality,Calculated 306 (280-300); Potassium 4.3 mEq/L (3.5-5.1); Sodium 145 mEq/L (136-145); eGFR For African Americans > 60 (> 60); eGFR For Non-African Americans > 60 (> 60)
[2017-05-06] MEDS: Cefepime HCl 1,000 MG in Water for inj. (sterile) 20 ML 10 ML IVP SCH (05:52)
[2017-05-06] MEDS: MethylPREDNISolone 40 MG/ML VIAL IVP SCH (05:52)
[2017-05-06] MEDS: *HR* Heparin 5,000 UNIT/ML VIAL SQ SCH (06:01)
--- NOTE | 2017-05-06 10:49 | Discharge Summary ---
Date of Encounter: 05/06/17 Time of Encounter: 10:44 - Discharge Diagnosis (1) Acute exacerbation of chronic obstructive airways disease Priority: Primary Status: Acute (2) Acute on chronic respiratory failure Priority: Primary Status: Acute Qualifiers: Respiratory failure complication: hypoxia and hypercapnia Qualified Code(s) : J96.21 - Acute and chronic respiratory failure with hypoxia; J96.22 - Acute and chronic respiratory failure with hypercapnia; J96.22 - Acute and chronic respiratory failure with hypercapnia; J96.22 - Acute and chronic respiratory failure with hypercapnia (3) Hypothyroidism (acquired) Priority: Secondary Status: Chronic (4) Physical deconditioning Priority: Primary Status: Chronic (5) Pneumonia Priority: Primary Status: Acute Qualifiers: Pneumonia type: due to unspecified organism Laterality: bilateral Lung location: unspecified part of lung Qualified Code(s): J18.9 - Pneumonia, unspecified organism (6) CAD (coronary artery disease) Priority: Secondary Status: Chronic Qualifiers: Coronary Disease-Associated Artery/Lesion type: [place] artery [place] vs. transplanted heart: [place] heart Associated angina: without angina Qualified Code(s): I25.10 - Atherosclerotic heart disease of [place] coronary artery without angina pectoris - Discharge Medications Prescriptions: levoFLOXacin [Levaquin] 500 mg PO DAILY #4 tablet metroNIDAZOLE [Flagyl] 500 mg PO TID #12 tablet predniSONE [PredniSONE] 10 mg PO TAPER #30 tablet Home Medications: Famotidine [Heartburn Prevention] 20 mg PO DAILY 07/24/16 [History] Levothyroxine [Synthroid] 50 mcg PO 0630 07/24/16 [History] Lisinopril [Zestril] 5 mg PO DAILY 07/24/16 [History] Loratadine [Claritin] 10 mg PO DAILY 07/24/16 [History] Simvastatin [Zocor] 40 mg PO HS 07/24/16 [History] Albuterol Sulfate [Proair Hfa] 2 puff IH Q4H PRN 08/04/16 [History] Oxygen 1 each .ROUTE AD 08/04/16 [History] LORazepam [Ativan] 1 mg PO TID PRN 04/10/17 [History] Acetaminophen [Tylenol] 650 mg PO Q6HR PRN tablet 04/14/17 [Rx] Albuterol Neb [Proventil Neb] 2.5 mg IH Q4H PRN inhsol 04/14/17 [Rx] Aspirin 81 mg PO DAILY tab.chew 04/14/17 [Rx] Metoprolol [Lopressor] 50 mg PO BID tablet 04/21/17 [Rx] Ipratropium/Albuterol Neb [Duoneb] 3 ml IH PRN PRN 05/02/17 [History] Polyethylene Glycol 3350 [MiraLAX] 17 gm PO DAILY 05/04/17 [History] levoFLOXacin [Levaquin] 500 mg PO DAILY #4 tablet 05/06/17 [Rx] metroNIDAZOLE [Flagyl] 500 mg PO TID #12 tablet 05/06/17 [Rx] predniSONE [PredniSONE] 10 mg PO TAPER #30 tablet 05/06/17 [Rx] Allergies/Adverse Reactions: 3 Allergy/AdvReac Type Severity Reaction Status Date / Time Penicillins Allergy Hives Verified 04/10/17 11:34 Sulfa (Sulfonamide Allergy Hives Verified 04/10/17 11:34 Antibiotics) Date of admission: 05/01/17 23:37 Primary care physician: Nuzhat Wood, Consults: 05/02/17 00:20 Consult to Nutrition [CONS] Routine Comment: Consulting Provider: NUTRITION Reason for Dietary Consult: MST Score Consult to Pastoral Services [CONS] Routine Comment: Consult to Research Program Internship [CONS] Routine Reason for SW Consult: home health needs to be continued 05/02/17 09:27 Consult to Pulmonology [CONS] Routine Consulting Provider: [facility] [place] Reason for Consult: Acute hypoxic/hypercapnic resp failure, severe COPD Call Completed: Yes 05/02/17 09:46 Consult to Speech Therapy [CONS] Routine Comment: Evaluate, develop and implement POC Reason for Consult: bedside swallow evaluation Call Completed: No 05/04/17 11:16 Consult to Occupational Therapy [CONS] Routine Comment: Evaluate, develop and implement POC Reason for Consult: Severe COPD, weakness Consult to Physical Therapy [CONS] Routine Comment: Evaluate, develop and implement POC Reason for Consult: Severe COPD, weakness - Patient Status Disposition: Transfer SNF Condition: Fair Overall status at discharge: patient is progressing back to baseline - Discharge Instructions Instructions: Acute Respiratory Distress Syndrome (DC), Hypothyroidism (DC), Chronic Hypertension (DC), Anemia (GEN), Pneumonia (DC) Follow Up With: Nuzhat Wood MD [Primary Care Provider] - 05/10/17 3:00 pm (Please follow up as schedule...) - Diet and Activity Activity: increase activity as tolerated, wear oxygen at all times Diet: regular diet Hospital course: Ms. Mcdaniels is a 86 year old female with PMH of COPD on LTOT (4L at baseline), CAD, HTN, HLD, GERD, Hypothyroidism who was transferred from [facility] for management of Acute respiratory distress secondary to COPD exacerbation. Pt went to the ER for worsening shortness of breath, pt was noted to be in severe respiratory distress with concern for her requiring intubation, due to which decision was made to transfer her to [facility]. Pt was placed on bipap support for 5 hours prior to her transfer to [facility]. Upon arrival she was saturating well on 5L NC and reports of feeling better. She was admitted to the hospitalist service. Pulmonology was consulted. She had a CT of chest which ruled out a PE. There was moderate severe diffuse bronchial wall thickening. It was finding suspicious for an aspiration pneumonia on the CT study was a mention of inflammation related to chronic recurrent aspiration given secretions within the airways and esophageal fissures suggesting dysmotility and reflux. For that the patient was put on at the theme of Flagyl. She was also continued on steroids IV. She was continued on nebulizer treatments. Her respiratory panel came back positive for parainfluenza 4. She continued to do well. We weaned her steroids down. I ended up discharging the patient on Levaquin and Flagyl. She was also discharged on a prednisone taper. She was set up with BiPAP to be used at night. She is on chronic O2 in the form of 3-4 L. She is discharged to nursing facility on 05/06/2017 in a stable condition. - Time Spent with Patient Total time spent providing and/or coordinating discharge services: Greater than 30 minutes - Constitutional Vitals: Temp Pulse Resp BP Pulse Ox 98.6 F 100 16 178/89 99 05/06/17 08:30 05/06/17 08:30 05/06/17 08:30 05/06/17 08:30 05/06/17 08:30 General appearance: Present: cachectic, cooperative, A&O X 3, underweight, answers questions appropriately Exam: GEN: NAD CVS: RRR. S1, S2, No m/r/g RESP: Diffuse expiratory posterior wheezes in the lower lung rooney. ABD: Soft, NT, ND, +BS EXT: No edema. 2+ DP. No rashes NEURO: Nonfocal
--- NOTE | 2017-05-06 10:51 | Physician Discharge Referral ---
ExtendedCare Referral Info Institutional Level of Care: Skilled - Diagnosis (1) Acute exacerbation of chronic obstructive airways disease Priority: Primary Status: Acute (2) Acute on chronic respiratory failure Priority: Primary Status: Acute (3) Hypothyroidism (acquired) Priority: Secondary Status: Chronic (4) Physical deconditioning Priority: Primary Status: Chronic (5) Pneumonia Priority: Primary Status: Acute (6) CAD (coronary artery disease) Priority: Secondary Status: Chronic - Transfer Medications Prescriptions: levoFLOXacin [Levaquin] 500 mg PO DAILY #4 tablet metroNIDAZOLE [Flagyl] 500 mg PO TID #12 tablet predniSONE [PredniSONE] 10 mg PO TAPER #30 tablet Home Medications: Famotidine [Heartburn Prevention] 20 mg PO DAILY 07/24/16 [History] Levothyroxine [Synthroid] 50 mcg PO 30 07/24/16 [History] Lisinopril [Zestril] 5 mg PO DAILY 07/24/16 [History] Loratadine [Claritin] 10 mg PO DAILY 07/24/16 [History] Simvastatin [Zocor] 40 mg PO HS 07/24/16 [History] Albuterol Sulfate [Proair Hfa] 2 puff IH Q4H PRN 08/04/16 [History] Oxygen 1 each .ROUTE AD 08/04/16 [History] LORazepam [Ativan] 1 mg PO TID PRN 04/10/17 [History] Acetaminophen [Tylenol] 650 mg PO Q6HR PRN tablet 04/14/17 [Rx] Albuterol Neb [Proventil Neb] 2.5 mg IH Q4H PRN inhsol 04/14/17 [Rx] Aspirin 81 mg PO DAILY tab.chew 04/14/17 [Rx] Metoprolol [Lopressor] 50 mg PO BID tablet 04/21/17 [Rx] Ipratropium/Albuterol Neb [Duoneb] 3 ml IH PRN PRN 05/02/17 [History] Polyethylene Glycol 3350 [MiraLAX] 17 gm PO DAILY 05/04/17 [History] levoFLOXacin [Levaquin] 500 mg PO DAILY #4 tablet 05/06/17 [Rx] metroNIDAZOLE [Flagyl] 500 mg PO TID #12 tablet 05/06/17 [Rx] predniSONE [PredniSONE] 10 mg PO TAPER #30 tablet 05/06/17 [Rx] Allergies/Adverse Reactions: 3 Allergy/AdvReac Type Severity Reaction Status Date / Time Penicillins Allergy Hives Verified 04/10/17 11:34 Sulfa (Sulfonamide Allergy Hives Verified 04/10/17 11:34 Antibiotics) - Respiratory Orders Oxygen / L per min (4L continuously and Bipap 10/5 at night) Smoking Cessation: Smoking cessation has been advised. For more information, call the [place] Tobacco Quit Line at 5-123-JYMI-NOW. - Diet Orders Regular CERTIFICATION: I certify that the transfer of the above named patient to an Extended Care Facility is necessary for the continuing treatment of the diagnosis listed. The above information is true and accurate reflection of patient's current condition. Confidential - Redisclosure prohibited without a patient's written consent.
[2017-05-06] MEDS: Budesonide/Formoterol 160/4.5 MDI IH SCH (11:00)
[2017-05-06] MEDS: *HR* LORazepam 1 MG TABLET PO PRN (11:07)
[2017-05-06] MEDS: Aspirin 81 MG TAB.CHEW PO SCH (11:07)
[2017-05-06] MEDS: Loratadine 10 MG TABLET PO SCH (11:08)
[2017-05-06] MEDS: metroNIDAZOLE 500 MG TABLET PO SCH (11:08)
[2017-05-06 12:19] VITALS: BP 146/83
[2017-05-07] MEDS ORDERED: predniSONE 20 MG TABLET PO SCH (09:00)
== END 2017-05-06 17:27 | DRG 190 ==
LOC: SUATTDRO 23:37 → 2NNU 23:37 → 2ANU 23:57
PROVIDERS: ADMIT Internal Medicine; ATTEND Internal Medicine